=== PATIENT | male | born 1975 | race Caucasian/White ===

== ENCOUNTER 2016-12-06 15:58 | Observation (INO) | payer OTHER ==
[2016-12-06] MEDS ORDERED: NITROGLYCERIN SL TABS 0.4 MG TAB SUBLINGUAL STA (16:42)
--- NOTE | 2016-12-06 16:51 | ED ---
General Adult HPI - General Chief complaint: Chest Pain Stated complaint: chest pain-sent by [employer] Time Seen by Provider: 12/06/16 16:21 Source: patient, family, RN notes reviewed Mode of arrival: ambulatory Limitations: no limitations - History of Present Illness Initial comments: Chief complaint and history of present illness this is a 40-year-old male here with his . Patient reports she's been having on-again off-again chest pain for 2 weeks. It does increase with exertion. He states that it feels like heavy pressure on his chest but is reproducible with deep breathing coughing and palpation over the left anterior chest wall. He denies any injuries. No associated radiation or no sweats nausea or vomiting. He was sent from the clinic here. - Related Data Home Medications Medication Instructions Recorded Confirmed Amlodipine Besylate/Valsartan 1 tab PO HS 12/06/16 12/06/16 [Exforge 5-320 mg Tablet] Allergies Allergy/AdvReac Type Severity Reaction Status Date / Time morphine AdvReac Chest Pain Verified 12/06/16 16:14 Review of Systems ROS Statement: Those systems with pertinent positive or pertinent negative responses have been documented in the HPI. Review of systems no visual acuity changes no headache no stiff neck she has reproducible anterior chest wall pain mostly on the left side. No associated nausea vomiting or sweats. No GI/ problems or complaints. No peripheral discomfort or problems. No change in bowel habits. All systems reviewed Past medical problems asthma many years ago. And hypertension. He is on Exforge combination of amlodipine and valsartan. Patient has had peripheral edema lately. We will discuss stopping the Exforge because of the amlodipine causing peripheral edema. Surgeries include bilateral tendon repairs of both elbows, left knee tib-fib surgery. Appendectomy and Achilles tendon repair. ALLERGIES to morphine which slows his heart. Patient's family history no sudden , no young adults with heart disease no cancers. Patient quit smoking 10 years ago denies alcohol use. ROS Other: All systems not noted in ROS Statement are negative. Past Medical History Past Medical History: Asthma, Hypertension History of Any Multi-Drug Resistant Organisms: None Reported Past Surgical History: Appendectomy, Orthopedic Surgery Past Psychological History: No Psychological Hx Reported Smoking Status: Former smoker Past Alcohol Use History: None Reported Past Drug Use History: None Reported General Exam - General Exam Comments Initial Comments: General: The patient is awake and alert, here because of chest pain ongoing for over 2 weeks, increased with exertion. Also reproducible by palpation of anterior chest wall as well as deep breathing and coughing. Vital signs shows temperature 90.1 pulse 81 respiratory rate 18 pulse ox 98% room air blood pressure 153/108. Repeated at 150/92. Eye: Pupils are equal, round and reactive to light, extra-ocular movements are intact ; there is normal conjunctiva bilaterally. No signs of icterus. Ears, nose, mouth and throat: There are moist mucous membranes and no oral lesions. Neck: The neck is supple, there is no tenderness . Cardiovascular: There is a regular rate and rhythm. No murmur, rub or gallop is appreciated. Respiratory: Lungs are clear to auscultation, respirations are non-labored, breath sounds are equal. No wheezes, stridor, rales, or rhonchi. Anterior chest wall discomfort can be reproduced by taking a deep breath coughing and pushing on his own anterior chest wall. He can decrease discomfort by putting pressure over the same area well in deep breaths or coughing. Gastrointestinal: Soft, non-distended, non-tender abdomen without masses or organomegaly noted. There is no rebound or guarding present. No CVA tenderness. Bowel sounds are unremarkable. No trouble bowel movements. Occasionally has slow difficult to start urination. Back: Mild low back pain. Musculoskeletal: Normal ROM, no tenderness, There is no pedal edema. There is no calf tenderness or swelling. Sensation intact. Pulses equal bilaterally 2+. Neurological: No neuro deficits Skin: Skin is warm and dry and no rashes or lesions are noted. Limitations: no limitations Course Vital Signs 12/06/16 12/06/16 12/06/16 16:00 16:21 17:00 Temperature 98.1 F 98.2 F Pulse Rate 81 71 71 Respiratory 18 17 16 Rate Blood Pressure 153/108 143/91 156/90 O2 Sat by Pulse 98 98 98 Oximetry EKG Findings - EKG Comments: EKG Findings:: EKG was done and reviewed at 1613 showing normal sinus rhythm no acute ST elevation no ectopy no ischemic changes. Rate 74 OH interval is 166 QRS 94 QT [address] Ty Medical Decision Making - Medical Decision Making Medical decision making the patient's white count 7.7 hemoglobin 13 hematocrit 38. INR 1.1, d-dimer normal at 0.24 and a normal BNP of 56. Troponin less than 0.012, amylase lipase normal limits. CK mildly elevated at 244. Potassium is 3.3 with a BUN 14 creatinine 1.2 with a GFR greater than 60. The patient was given sublingual nitro which she reports was slightly better but still of discomfort. ET breathe better now and less discomfort. Chest x-ray was done AP and lateral views radiologist's impression is there is no focal airspace opacity, pleural effusion, or pneumothorax seen. Cardiac silhouette size normal limits. The osseous structures are intact. Impression; no acute cardiopulmonary process as read by Dr. lyons We discussed the labs and x-ray. The case be discussed with the attending patient will be admitted for observation for unstable angina - Lab Data Result diagrams: 12/06/16 16:45 12/06/16 16:45 Lab Results 12/06/16 12/06/16 12/06/16 Range/Units 16:45 16:45 16:45 WBC 7.7 (3.8-10.6) k/uL RBC 4.85 (4.30-5.90) m/uL Hgb 13.6 (13.0-17.5) gm/dL Hct 38.0 L (39.0-53.0) % MCV 78.3 L (80.0-100.0) fL MCH 28.1 (25.0-35.0) pg MCHC 35.9 (31.0-37.0) g/dL RDW 13.8 (11.5-15.5) % Plt Count 217 (150-450) k/uL Neutrophils % 65 % Lymphocytes % 23 % Monocytes % 8 % Eosinophils % 2 % Basophils % 1 % Neutrophils # 5.0 (1.3-7.7) k/uL Lymphocytes # 1.7 (1.0-4.8) k/uL Monocytes # 0.6 (0-1.0) k/uL Eosinophils # 0.2 (0-0.7) k/uL Basophils # 0.1 (0-0.2) k/uL PT (9.0-12.0) sec INR (<1.2) APTT (22.0-30.0) sec D-Dimer (<0.60) mg/L FEU Sodium 143 (137-145) mmol/L Potassium 3.3 L (3.5-5.1) mmol/L Chloride 107 (98-107) mmol/L Carbon Dioxide 27 (22-30) mmol/L Anion Gap 9 mmol/L BUN 14 (9-20) mg/dL Creatinine 1.20 (0.66-1.25) mg/dL Est GFR (MDRD) Af Amer >60 (>60 ml/min/1.73 sqM) Est GFR (MDRD) Non-Af >60 (>60 ml/min/1.73 sqM) Glucose 81 (74-99) mg/dL Calcium 9.1 (8.4-10.2) mg/dL Magnesium 2.3 (1.6-2.3) mg/dL Total Bilirubin 0.9 (0.2-1.3) mg/dL AST 40 (17-59) U/L ALT 54 (21-72) U/L Alkaline Phosphatase 58 (38-126) U/L Total Creatine Kinase 244 H (55-170) U/L CK-MB (CK-2) 1.9 (0.0-2.4) ng/mL CK-MB (CK-2) Rel Index 0.8 Troponin I <0.012 (0.000-0.034) ng/mL NT-Pro-B Natriuret Pep pg/mL Total Protein 6.7 (6.3-8.2) g/dL Albumin 4.0 (3.5-5.0) g/dL Amylase 61 (30-110) U/L Lipase 92 (23-300) U/L 12/06/16 12/06/16 Range/Units 16:45 16:45 WBC (3.8-10.6) k/uL RBC (4.30-5.90) m/uL Hgb (13.0-17.5) gm/dL Hct (39.0-53.0) % MCV (80.0-100.0) fL MCH (25.0-35.0) pg MCHC (31.0-37.0) g/dL RDW (11.5-15.5) % Plt Count (150-450) k/uL Neutrophils % % Lymphocytes % % Monocytes % % Eosinophils % % Basophils % % Neutrophils # (1.3-7.7) k/uL Lymphocytes # (1.0-4.8) k/uL Monocytes # (0-1.0) k/uL Eosinophils # (0-0.7) k/uL Basophils # (0-0.2) k/uL PT 10.6 (9.0-12.0) sec INR 1.1 (<1.2) APTT 23.6 (22.0-30.0) sec D-Dimer 0.24 (<0.60) mg/L FEU Sodium (137-145) mmol/L Potassium (3.5-5.1) mmol/L Chloride (98-107) mmol/L Carbon Dioxide (22-30) mmol/L Anion Gap mmol/L BUN (9-20) mg/dL Creatinine (0.66-1.25) mg/dL Est GFR (MDRD) Af Amer (>60 ml/min/1.73 sqM) Est GFR (MDRD) Non-Af (>60 ml/min/1.73 sqM) Glucose (74-99) mg/dL Calcium (8.4-10.2) mg/dL Magnesium (1.6-2.3) mg/dL Total Bilirubin (0.2-1.3) mg/dL AST (17-59) U/L ALT (21-72) U/L Alkaline Phosphatase (38-126) U/L Total Creatine Kinase (55-170) U/L CK-MB (CK-2) (0.0-2.4) ng/mL CK-MB (CK-2) Rel Index Troponin I (0.000-0.034) ng/mL NT-Pro-B Natriuret Pep 56 pg/mL Total Protein (6.3-8.2) g/dL Albumin (3.5-5.0) g/dL Amylase (30-110) U/L Lipase (23-300) U/L Disposition Clinical Impression: Chest pain Disposition: ADMITTED IP TO THIS HOSP Condition: Fair Referrals: Roger Alcaraz MD [Primary Care Provider] - 1-2 days
[2016-12-06 16:57] LABS: Basophils # (A) 0.1 k/uL (0-0.2); Basophils % (A) 1 %; CH 28.1; Eosinophils # (A) 0.2 k/uL (0-0.7); Eosinophils % (A) 2 %; HDW 3.17; HGB 13.6 gm/dL (13.0-17.5); Luc # (Auto) 0.16; Luc % (Auto) 2; Lymphocytes # (A) 1.7 k/uL (1.0-4.8); Lymphocytes % (A) 23 %; MCH 28.1 pg (25.0-35.0); MCHC 35.9 g/dL (31.0-37.0); MCV 78.3 fL (80.0-100.0); Mean Platelet Volume 6.8; Monocytes # (A) 0.6 k/uL (0-1.0); Monocytes % (A) 8 %; Neutrophils % (A) 65 %; RBC 4.85 m/uL (4.30-5.90); RDW 13.8 % (11.5-15.5); WBC 7.7 k/uL (3.8-10.6); WBC (Perox) 7.63
[2016-12-06 17:07] LABS: ALT 54 U/L (21-72); AST 40 U/L (17-59); Alkaline Phosphatase 58 U/L (38-126); Amylase 61 U/L (30-110); Anion Gap 9 mmol/L; Blood Urea Nitrogen 14 mg/dL (9-20); Calcium 9.1 mg/dL (8.4-10.2); Carbon Dioxide 27 mmol/L (22-30); Chloride 107 mmol/L (98-107); Glucose 81 mg/dL (74-99); Magnesium 2.3 mg/dL (1.6-2.3); Non-African American GFR(MDRD) >60 (>60 ml/min/1.73 sqM); Potassium 3.3 mmol/L (3.5-5.1); Sodium 143 mmol/L (137-145); Total Bilirubin 0.9 mg/dL (0.2-1.3); Total Protein 6.7 g/dL (6.3-8.2)
[2016-12-06 17:10] LABS: INR 1.1 (<1.2); Partial Thromboplastin Time 23.6 sec (22.0-30.0); Prothrombin Time 10.6 sec (9.0-12.0)
[2016-12-06 17:18] LABS: Creatine Kinase 244 U/L (55-170)
--- NOTE | 2016-12-06 17:30 | XR ---
EXAMINATION TYPE: XR chest 2V DATE OF EXAM: 12/06/2016 COMPARISON: NONE HISTORY: Chest pain and pressure for 2 weeks, history of asthma TECHNIQUE: Frontal and lateral views of the chest are obtained. FINDINGS: There is no focal air space opacity, pleural effusion, or pneumothorax seen. The cardiac silhouette size is within normal limits. The osseous structures are intact. IMPRESSION: No acute cardiopulmonary process.
[2016-12-06 17:31] LABS: Creatine Kinase MB 1.9 ng/mL (0.0-2.4); Troponin I <0.012 ng/mL (0.000-0.034)
[2016-12-06] MEDS ORDERED: NALOXONE 0.4 MG/ML 1 ML VIAL IV PRN (17:45)
[2016-12-06] MEDS ORDERED: POTASSIUM CHLORIDE ER 20 MEQ TAB.ER PO STA (18:03)
[2016-12-06] MEDS: SODIUM CHLORIDE 0.9% 1,000 ML IV SCH (18:05)
[2016-12-06] MEDS ORDERED: POTASSIUM CHLORIDE ER 20 MEQ TAB.ER PO ONE (19:00)
[2016-12-06] MEDS: NITROGLYCERIN OINT 1 INCH/GM PACKET TOPICAL SCH ×2 (19:20→23:41)
[2016-12-06] MEDS: HEPARIN SODIUM,PORCINE 5,000 UNIT/ML 1 ML VIAL SQ SCH ×2 (19:20→23:41)
[2016-12-06 19:27] VITALS: BMI 28.5
[2016-12-06] MEDS: amLODIPine 5 MG TAB PO SCH (20:03)
[2016-12-06] MEDS: VALSARTAN 160 MG TAB PO SCH (20:03)
[2016-12-06] MEDS: IBUPROFEN 400 MG TAB PO PRN (20:03)
[2016-12-06 23:05] LABS: Creatine Kinase 220 U/L (55-170)
[2016-12-06 23:18] LABS: Creatine Kinase MB 1.5 ng/mL (0.0-2.4); Troponin I <0.012 ng/mL (0.000-0.034)
[2016-12-07] MEDS: IBUPROFEN 400 MG TAB PO PRN (04:40)
[2016-12-07] MEDS ORDERED: IPRATROPIUM-ALBUTEROL 3 ML NEB INHALATION PRN (05:14)
[2016-12-07 05:19] LABS: Creatine Kinase 187 U/L (55-170)
[2016-12-07 05:33] LABS: Creatine Kinase MB 1.2 ng/mL (0.0-2.4); Troponin I <0.012 ng/mL (0.000-0.034)
[2016-12-07] MEDS: SODIUM CHLORIDE 0.9% 1,000 ML IV SCH ×2 (07:18→20:07)
[2016-12-07] MEDS: NITROGLYCERIN OINT 1 INCH/GM PACKET TOPICAL SCH (07:19)
[2016-12-07] MEDS: HEPARIN SODIUM,PORCINE 5,000 UNIT/ML 1 ML VIAL SQ SCH ×2 (08:16→16:54)
[2016-12-07] MEDS ORDERED: Potassium Replacement Protocol 1 EACH MISC MISCELLANE PRN (08:52)
[2016-12-07] MEDS ORDERED: PANTOPRAZOLE 40 MG TABLET PO SCH (09:30)
[2016-12-07] MEDS: POTASSIUM CHLORIDE ER 20 MEQ TAB.ER PO SCH ×3 (09:49→12:09)
[2016-12-07] MEDS: INDOMETHACIN 25 MG CAP PO SCH ×2 (10:08→20:20)
[2016-12-07] MEDS: COLCHICINE 0.6 MG TAB PO SCH ×2 (10:09→20:20)
--- NOTE | 2016-12-07 13:14 | CONS ---
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 He has a history of hypertension which is under fair control. He takes Exforge 5/320 for that. He is otherwise in good health, reasonably active person but for the last two weeks he has been experiencing discomfort in the chest wall of a pleuritic nature, when he takes a deep breath it hurts. Chest x-ray, troponins and EKG are unremarkable. However, when I had him lean forward and take a deep breath the discomfort was worse than when he laid back. Possibility of pericarditis cannot be totally excluded although he does not have a rub and there is no ST segment change or DE depression. However, I am going to give a trial with colchicine and Indomethacin along with some Protonix and see how he does. He has no arrhythmia so far. He is resting comfortably but with deep breathing he does have symptoms. PAST MEDICAL HISTORY: Hypertension. No evidence of any prior myocardial infarction or CVA. He is status post appendectomy. Has had some orthopedic surgery in the past. There is also a question of bronchial asthma. MEDICATIONS AT HOME: Exforge 5/320 one tablet daily. SOCIAL HISTORY: He quit smoking 10 years ago. Does not use alcohol. On examination blood pressure is 147/100, pulse rate is about 78 per minute, regular. HEENT: Unremarkable. Fundus was not examined by me. NECK: Supple. There is no JVD. I do not hear a carotid bruit. There is no thyromegaly. HEART: Reveals S1/S2 heard normally. There is no rub, murmur or gallop. LUNGS: Clear. ABDOMEN: Soft, nontender. LOWER EXTREMITIES: Normal pulses. No edema. CENTRAL NERVOUS SYSTEM: Normal. EKG revealed sinus mechanism without any evidence of DE depression, ST segment change or any other abnormality. This is a normal EKG. IMPRESSION: 1. Clinical features suggestive of pericarditis. 2. History of hypertension. 3. History of bronchial asthma which is not active problem at this time. RECOMMENDATIONS: I am recommending that we discontinue nitroglycerin. I will start him on Indomethacin, colchicine and Protonix and also metoprolol tartrate 25 mg daily in addition to his Exforge which will be resumed. Based on his clinical course I will make further recommendations. I will do an EKG in the morning as well. Discussed my thoughts in detail with the patient. Thank you very much for the consult. JOE
--- NOTE | 2016-12-07 15:13 | P.HPIM ---
History of Present Illness H&P Date: 12/07/16 Chief Complaint: Chest pain Patient is a 40-year-old male who presented to emergency room with a chief complaint of chest pain. Patient reports she's been having on-again off-again chest pain for 2 weeks. It does increase with exertion. He states that it feels like heavy pressure on his chest but is reproducible with deep breathing coughing and palpation over the left anterior chest wall. He denies any injuries. No associated radiation or no sweats nausea or vomiting. He was sent from the clinic here. Past Medical History Past Medical History: Asthma, Hypertension History of Any Multi-Drug Resistant Organisms: None Reported Past Surgical History: Appendectomy, Orthopedic Surgery Additional Past Surgical History / Comment(s): Tendons in B/L elbows, achillies tendon on the right leg, left leg broken tibia Past Anesthesia/Blood Transfusion Reactions: No Reported Reaction Past Psychological History: No Psychological Hx Reported Smoking Status: Former smoker Past Alcohol Use History: None Reported Past Drug Use History: None Reported - Past Family History Mother Family Medical History: No Reported History Father Family Medical History: Hypertension Medications and Allergies Home Medications Medication Instructions Recorded Confirmed Type Amlodipine Besylate/Valsartan 1 tab PO HS 12/06/16 12/06/16 History [Exforge 5-320 mg Tablet] Allergies Allergy/AdvReac Type Severity Reaction Status Date / Time morphine AdvReac Chest Pain Verified 12/06/16 19:22 Physical Exam Vitals: Vital Signs Temp Pulse Pulse Resp BP BP Pulse Ox 12/07/16 11:38 97.8 F 83 18 165/111 96 12/07/16 07:29 98.3 F 78 18 147/101 98 12/07/16 05:30 72 12/07/16 05:22 72 12/07/16 04:00 98.1 F 64 18 132/78 97 12/06/16 23:45 18 12/06/16 23:24 79 18 140/80 98 12/06/16 20:00 18 12/06/16 19:13 98.3 F 59 L 18 146/94 97 12/06/16 18:08 97.9 F 68 18 137/98 99 12/06/16 17:00 71 16 156/90 98 12/06/16 16:21 98.2 F 71 17 143/91 98 12/06/16 16:00 98.1 F 81 18 153/108 98 Intake and Output 12/07/16 12/07/16 12/07/16 06:59 14:59 22:59 Other: Voiding Method Toilet # Voids 1 In general patient is alert and oriented 3 in no apparent distress HEENT head normocephalic and atraumatic Neck is supple no JVD no goiter no lymphadenopathy Chest exam reveals a few scattered crackles no wheezing Cardiac exam reveals regular heart sounds S1 and S2 no gallops no murmurs Abdomen is soft, nontender no organomegaly with normal bowel sounds Extremity exam reveals no edema no cyanosis or clubbing Results CBC & Chem 7: 12/06/16 16:45 12/07/16 08:08 Labs: Abnormal Lab Results - Last 24 Hours (Table) 12/06/16 12/06/16 12/06/16 Range/Units 16:45 16:45 16:45 Hct 38.0 L (39.0-53.0) % MCV 78.3 L (80.0-100.0) fL Potassium 3.3 L (3.5-5.1) mmol/L Total Creatine Kinase 244 H (55-170) U/L 12/06/16 12/07/16 12/07/16 Range/Units 22:33 04:45 08:08 Hct (39.0-53.0) % MCV (80.0-100.0) fL Potassium 3.2 L (3.5-5.1) mmol/L Total Creatine Kinase 220 H 187 H (55-170) U/L Thrombosis Risk Factor Assmnt - Choose All That Apply Each Factor Represents 1 point: Age 41-60 years Thrombosis Risk Factor Assessment Total Risk Factor Score: 1 Thrombosis Risk Factor Assessment Level: Low Risk Assessment and Plan Plan: #1 episodes of chest pain on and off for the last 2 weeks. EKG is normal cardiac enzymes are normal Pain increased with deep inspiration and was bending forward. Case discussed was cardiology possibility of acute pericarditis cannot be ruled out. Patient was started on oral colchicin and Indocin Echocardiogram was ordered monitor till tomorrow #2 hypertension with elevated blood pressure on presentation will monitor blood pressure and adjust medication as needed currently he is maintained on Norvasc 5 mg by mouth daily Diovan 320 mg once daily and metoprolol 25 mg once daily
[2016-12-07] MEDS: amLODIPine 5 MG TAB PO SCH (20:20)
[2016-12-07] MEDS: VALSARTAN 160 MG TAB PO SCH (20:20)
[2016-12-08] MEDS: HEPARIN SODIUM,PORCINE 5,000 UNIT/ML 1 ML VIAL SQ SCH ×2 (00:25→15:13)
[2016-12-08] MEDS ORDERED: PANTOPRAZOLE 40 MG TABLET PO SCH (06:30)
[2016-12-08 07:40] VITALS: RESP 16
[2016-12-08] MEDS ORDERED: METOPROLOL TARTRATE 25 MG TAB PO SCH (09:00)
[2016-12-08] MEDS ORDERED: HEPARIN SODIUM,PORCINE 5,000 UNIT/ML 1 ML VIAL SQ SCH (09:15)
[2016-12-08] MEDS: INDOMETHACIN 25 MG CAP PO SCH (09:33)
[2016-12-08] MEDS: COLCHICINE 0.6 MG TAB PO SCH (09:33)
[2016-12-08] MEDS: SODIUM CHLORIDE 0.9% 1,000 ML IV SCH (09:37)
--- NOTE | 2016-12-08 10:47 | ECHOF ---
Referral Reason:Pericarditis,HTN MEASUREMENTS -------- HEIGHT: 180.3 cm WEIGHT: 90.3 kg BP: 132/90 IVSd: 1.3 cm (0.6 - 1.1) LVIDd: 3.5 cm (3.9 - 5.3) LVPWd: 1.1 cm (0.6 - 1.1) IVSs: 1.8 cm LVIDs: 1.8 cm LVPWs: 1.6 cm Ao Diam: 3.6 cm (2.0 - 3.7) AV Cusp: 2.4 cm (1.5 - 2.6) LA Diam: 3.4 cm (2.7 - 3.8) MV EXCURSION: 19.176 mm (> 18.000) MV EF SLOPE: 80 mm/s (70 - 150) EPSS: 0.5 cm MV E Wilmar: 0.81 m/s MV DecT: 202 ms MV A Wilmar: 0.78 m/s MV E/A Ratio: 1.03 RAP: 5.00 mmHg RVSP: 12.80 mmHg FINDINGS -------- Sinus rhythm. This was a technically good study. The left ventricular size is normal. There is mild concentric left ventricular hypertrophy. Overall left ventricular systolic function is normal with, an EF between 55 - 60 %. The right ventricle is normal in size and function. The left atrium is normal in size. The right atrium is normal in size. The aortic valve is trileaflet, and appears structurally normal. No aortic stenosis or regurgitation. The mitral valve is normal. There is trace mitral regurgitation. Trace tricuspid regurgitation present. The right ventricular systolic pressure, as measured by Doppler, is 12.80mmHg. There is no pulmonic regurgitation present. The aortic root size is normal. There is no pericardial effusion. CONCLUSIONS -------- 1. Sinus rhythm. 2. The aortic root size is normal. 3. There is no pericardial effusion. 4. This was a technically good study. 5. There is mild concentric left ventricular hypertrophy. 6. Overall left ventricular systolic function is normal with, an EF between 55 - 60 %. 7. The left atrium is normal in size. 8. The aortic valve is trileaflet, and appears structurally normal. No aortic stenosis or regurgitation. 9. There is trace mitral regurgitation. 10. Trace tricuspid regurgitation present. 11. There is no pulmonic regurgitation present. HOME SERVICE ADVISOR: Eli Gant RDCS
--- NOTE | 2016-12-08 11:03 | PN ---
Mr. Hillman is a patient who has history of hypertension. Also had pleuritic pain , which I felt was pericarditis. I gave him some colchicine, Indocin. He is feeling better. Symptoms are less. He does have pain, but significant improvement is noted. Vital signs are stable. Physical exam is unremarkable. Blood pressure is 140/90. Pulse rate is 70 per minute. S1 and S2 are normal and no rub. Lungs are clear. Abdomen and lower extremity exam unchanged. Plan is to check the echo, which will be done today, and continue colchicine, Indocin and Protonix for now. I will consider discharging the patient on this medicine and re-evaluate in about a week and when the symptoms are resolved, will consider a stress test at that time. We will make a decision after echo is performed. JOE
[2016-12-08 11:38] VITALS: PULSE 67; TEMP 98.4
[2016-12-08 12:39] VITALS: BP 151/114
--- NOTE | 2016-12-08 12:54 | P.DS ---
Providers Date of admission: 12/06/16 17:46 Expected date of discharge: 12/08/16 Attending physician: Roger Alcaraz Consults: 12/07/16 07:16 Consult Physician Routine Consulting Provider: Iva Sow Consult Reason/Comments: chest pain Do you want consulting provider notified?: Yes Primary care physician: Roger Alcaraz [facility] Course: Discharge diagnosis #1 episodes of chest pain on and off for the last 2 weeks. Likely secondary to a possible acute pericarditis. EKG is normal cardiac enzymes are normal. Troponins negative 3 sets Pain increased with deep inspiration and was bending forward. Case discussed was cardiology possibility of acute pericarditis cannot be ruled out. Patient was started on oral colchicin and Indocin. He reported some improvement in his chest pain to cardiology. Echo showed an EF of 55-60% with trace mitral regurgitation and tricuspid regurgitation. No pericardial effusion. #2 hypertension with elevated blood pressure on presentation will monitor blood pressure and adjust medication as needed currently he is maintained on Norvasc 5 mg by mouth daily Diovan 320 mg once daily metoprolol 25 mg daily added by cardiology. Blood pressure discharge is 155/114. We will monitor on current regimen of blood pressure medications. It has patient follow-up with Dr. Alcaraz in 1 week. Hospital course Patient is a 40-year-old male who presented to emergency room with a chief complaint of chest pain. Patient reports she's been having on-again off-again chest pain for 2 weeks. It does increase with exertion. He states that it feels like heavy pressure on his chest but is reproducible with deep breathing coughing and palpation over the left anterior chest wall. He denies any injuries. No associated radiation or no sweats nausea or vomiting. He was sent from the clinic here. EKG had shown normal sinus rhythm. Cardiac enzymes are normal. Patient evaluated by cardiology. Initially felt that this was related to pericarditis. He was started on Indocin and colchicine. He reported to cardiology some improvement. I'm still reporting some pain to me this morning. However patient is eager for discharge. Echo was completed which was essentially normal. In cardiology has cleared him for discharge. He'll follow-up with him in the office. Likely his symptoms may have been related to a possible pericarditis. He'll continue on the colchicine and Indocin as prescribed per cardiology. Also metoprolol was added for better blood pressure control. We'll patient follow-up in the office to reevaluate his blood pressure. Patient follow-up with Dr. Alcaraz in 1 week and cardiology on 12/26/2016. Please refer to chart for any further details. Patient Condition at Discharge: Stable Plan - Discharge Summary New Discharge Prescriptions: New Colchicine [Colcrys] 0.6 mg PO BID #28 tablet Indomethacin [Indocin] 25 mg PO BID #12 capsule Pantoprazole Sodium [Protonix] 40 mg PO DAILY #90 tablet. Metoprolol Tartrate [Lopressor] 25 mg PO DAILY #30 tab Continue Amlodipine Besylate/Valsartan [Exforge 5-320 mg Tablet] 1 tab PO HS Discharge Medication List Amlodipine Besylate/Valsartan [Exforge 5-320 mg Tablet] 1 tab PO HS 12/06/16 [ History] Colchicine [Colcrys] 0.6 mg PO BID #28 tablet 12/08/16 [Rx] Indomethacin [Indocin] 25 mg PO BID #12 capsule 12/08/16 [Rx] Metoprolol Tartrate [Lopressor] 25 mg PO DAILY #30 tab 12/08/16 [Rx] Pantoprazole Sodium [Protonix] 40 mg PO DAILY #90 tablet. 12/08/16 [Rx] Follow up Appointment(s)/Referral(s): Iva Sow MD [STAFF PHYSICIAN] - 12/26/16 8:15 am (Will have echocardiogram then office visit with Dr. ZUNILDA Sow) Roger Alcaraz MD [Primary Care Provider] - 1 Week Activity/Diet/Wound Care/Special Instructions: Diet: cardiac Activity: as tolerated Discharge Disposition: HOME SELF-CARE
== END 2016-12-08 14:54 | disposition home or self-care (01) ==
LOC: EC 15:58 → 3OBS 17:46
PROVIDERS: ADMIT Internal Medicine; ATTEND Internal Medicine
DX: R07.9 Chest pain, unspecified (principal); I10 Essential (primary) hypertension; Z79.899 Other long term (current) drug therapy; Z88.5 Allergy status to narcotic agent; Z87.891 Personal history of nicotine dependence
CPT/HCPCS: 96360; 96361 ×2; 96372 ×3; 99285; 36415; 94640; 93005; 93306; 85379; 83880; 80053; 82150; 82550 ×2; 82553 ×2; 83690; 83735; 84132 ×2; 84484 ×2; 85025; 85610; 85730; 71020; G0378 ×3; J1644 ×3

== ENCOUNTER → 2017-02-04 | Outpatient (CLI) | payer OTHER ==
[2017-02-04 10:46] LABS: Anion Gap 12 mmol/L; Blood Urea Nitrogen 24 mg/dL (9-20); Calcium 10.2 mg/dL (8.4-10.2); Carbon Dioxide 30 mmol/L (22-30); Chloride 99 mmol/L (98-107); Glucose 93 mg/dL (74-99); Non-African American GFR(MDRD) 56 (>60 ml/min/1.73 sqM); Potassium 3.4 mmol/L (3.5-5.1); Sodium 141 mmol/L (137-145)
== END | disposition home or self-care (01) ==
LOC: LABWHC1 09:59
PROVIDERS: ATTEND Internal Medicine Interventional Cardiology
DX: I10 Essential (primary) hypertension (principal)
CPT/HCPCS: 36415; 80048

== ENCOUNTER → 2017-05-11 | Outpatient (CLI) | payer OTHER ==
[2017-05-11 14:23] LABS: Anion Gap 9 mmol/L; Blood Urea Nitrogen 22 mg/dL (9-20); Calcium 9.5 mg/dL (8.4-10.2); Carbon Dioxide 34 mmol/L (22-30); Chloride 96 mmol/L (98-107); Glucose 95 mg/dL (74-99); Non-African American GFR(MDRD) 51 (>60 ml/min/1.73 sqM); Potassium 3.2 mmol/L (3.5-5.1); Sodium 139 mmol/L (137-145)
== END | disposition home or self-care (01) ==
LOC: LABWHC1 13:16
PROVIDERS: ATTEND Internal Medicine Interventional Cardiology
DX: E03.9 Hypothyroidism, unspecified (principal); I10 Essential (primary) hypertension
CPT/HCPCS: 36415; 80048; 84439; 84443

== ENCOUNTER 2017-08-05 10:32 | Emergency (ER) | payer OTHER ==
[2017-08-05 10:41] VITALS: TEMP 98.6
[2017-08-05] MEDS ORDERED: SODIUM CHLORIDE 0.9% 500 ML IV STA (11:00)
[2017-08-05] MEDS ORDERED: SODIUM CHLORIDE 0.9% 1,000 ML IV STA (11:00)
--- NOTE | 2017-08-05 11:14 | ED ---
General Adult HPI - General Chief complaint: Syncope Stated complaint: syncope Time Seen by Provider: 08/05/17 10:34 Source: patient, EMS, RN notes reviewed, old records reviewed Mode of arrival: EMS Limitations: no limitations - History of Present Illness Initial comments: This is a 41-year-old male the ER for evaluation. This patient has a for evaluation regarding syncope. Patient had syncopal event at work today. Patient does take blood pressure medication with history of high blood pressure. Patient states he felt fine otherwise is been a little no other lately with nausea and decreased appetite, no significant diarrhea no abdominal pain no chest patient was breath headache. No prior episodes of syncope. - Related Data Home Medications Medication Instructions Recorded Confirmed Amlodipine Besylate/Valsartan 1 tab PO DAILY 08/05/17 08/05/17 [Exforge 10-320 mg Tablet] Losartan Potassium [Cozaar] 100 mg PO DAILY 08/05/17 08/05/17 Metoprolol Tartrate [Lopressor] 25 mg PO BID 08/05/17 08/05/17 amLODIPine [Norvasc] 5 mg PO BID 08/05/17 08/05/17 Allergies Allergy/AdvReac Type Severity Reaction Status Date / Time morphine AdvReac Chest Pain Verified 08/05/17 11:24 Review of Systems ROS Statement: Those systems with pertinent positive or pertinent negative responses have been documented in the HPI. ROS Other: All systems not noted in ROS Statement are negative. Past Medical History Past Medical History: Asthma, Hypertension History of Any Multi-Drug Resistant Organisms: None Reported Past Surgical History: Appendectomy, Orthopedic Surgery Additional Past Surgical History / Comment(s): Tendons in B/L elbows, achillies tendon on the right leg, left leg broken tibia Past Anesthesia/Blood Transfusion Reactions: No Reported Reaction Past Psychological History: No Psychological Hx Reported Smoking Status: Former smoker Past Alcohol Use History: None Reported Past Drug Use History: None Reported - Past Family History Mother Family Medical History: No Reported History Father Family Medical History: Hypertension General Exam Limitations: no limitations General appearance: alert, in no apparent distress Head exam: Present: atraumatic, normocephalic, normal inspection Eye exam: Present: normal appearance, PERRL, EOMI. Absent: scleral icterus, conjunctival injection, periorbital swelling ENT exam: Present: normal exam, mucous membranes moist Neck exam: Present: normal inspection. Absent: tenderness, meningismus, lymphadenopathy Respiratory exam: Present: normal lung sounds bilaterally. Absent: respiratory distress, wheezes, rales, rhonchi, stridor Cardiovascular Exam: Present: regular rate, normal rhythm, normal heart sounds. Absent: systolic murmur, diastolic murmur, rubs, gallop, clicks GI/Abdominal exam: Present: soft, normal bowel sounds. Absent: distended, tenderness, guarding, rebound, rigid Extremities exam: Present: normal inspection, full ROM, normal capillary refill. Absent: tenderness, pedal edema, joint swelling, calf tenderness Back exam: Present: normal inspection Neurological exam: Present: alert, oriented X3, CN II-XII intact Psychiatric exam: Present: normal affect, normal mood Skin exam: Present: warm, dry, intact, normal color. 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 No complaints of chest pain shortness breath or abdominal pain. No headache. Patient is mildly dehydrated, improves with fluid replacement. Patient can be discharged home - Lab Data Result diagrams: 08/05/17 10:48 08/05/17 10:48 Lab Results 08/05/17 08/05/17 08/05/17 Range/Units 10:48 10:48 10:48 WBC 4.2 (3.8-10.6) k/uL RBC 4.94 (4.30-5.90) m/uL Hgb 13.7 (13.0-17.5) gm/dL Hct 38.9 L (39.0-53.0) % MCV 78.8 L (80.0-100.0) fL MCH 27.7 (25.0-35.0) pg MCHC 35.1 (31.0-37.0) g/dL RDW 13.8 (11.5-15.5) % Plt Count 197 (150-450) k/uL Neutrophils % 61 % Lymphocytes % 25 % Monocytes % 8 % Eosinophils % 3 % Basophils % 1 % Neutrophils # 2.6 (1.3-7.7) k/uL Lymphocytes # 1.0 (1.0-4.8) k/uL Monocytes # 0.3 (0-1.0) k/uL Eosinophils # 0.1 (0-0.7) k/uL Basophils # 0.0 (0-0.2) k/uL Poikilocytosis Slight PT (9.0-12.0) sec INR (<1.2) APTT (22.0-30.0) sec D-Dimer (<0.60) mg/L FEU Sodium 140 (137-145) mmol/L Potassium 3.2 L (3.5-5.1) mmol/L Chloride 102 (98-107) mmol/L Carbon Dioxide 27 (22-30) mmol/L Anion Gap 11 mmol/L BUN 21 H (9-20) mg/dL Creatinine 1.99 H (0.66-1.25) mg/dL Est GFR (CKD-EPI)AfAm 46 (>60 ml/min/1.73 sqM) Est GFR (CKD-EPI)NonAf 40 (>60 ml/min/1.73 sqM) Glucose 100 H (74-99) mg/dL Calcium 8.5 (8.4-10.2) mg/dL Magnesium 2.5 H (1.6-2.3) mg/dL Total Bilirubin 0.6 (0.2-1.3) mg/dL AST 44 (17-59) U/L ALT 38 (21-72) U/L Alkaline Phosphatase 48 (38-126) U/L Total Creatine Kinase 517 H (55-170) U/L CK-MB (CK-2) 1.3 (0.0-2.4) ng/mL CK-MB (CK-2) Rel Index 0.3 Troponin I <0.012 (0.000-0.034) ng/mL Total Protein 6.5 (6.3-8.2) g/dL Albumin 3.8 (3.5-5.0) g/dL 08/05/17 Range/Units 10:48 WBC (3.8-10.6) k/uL RBC (4.30-5.90) m/uL Hgb (13.0-17.5) gm/dL Hct (39.0-53.0) % MCV (80.0-100.0) fL MCH (25.0-35.0) pg MCHC (31.0-37.0) g/dL RDW (11.5-15.5) % Plt Count (150-450) k/uL Neutrophils % % Lymphocytes % % Monocytes % % Eosinophils % % Basophils % % Neutrophils # (1.3-7.7) k/uL Lymphocytes # (1.0-4.8) k/uL Monocytes # (0-1.0) k/uL Eosinophils # (0-0.7) k/uL Basophils # (0-0.2) k/uL Poikilocytosis PT 10.0 (9.0-12.0) sec INR 1.0 (<1.2) APTT 22.3 (22.0-30.0) sec D-Dimer 0.43 (<0.60) mg/L FEU Sodium (137-145) mmol/L Potassium (3.5-5.1) mmol/L Chloride (98-107) mmol/L Carbon Dioxide (22-30) mmol/L Anion Gap mmol/L BUN (9-20) mg/dL Creatinine (0.66-1.25) mg/dL Est GFR (CKD-EPI)AfAm (>60 ml/min/1.73 sqM) Est GFR (CKD-EPI)NonAf (>60 ml/min/1.73 sqM) Glucose (74-99) mg/dL Calcium (8.4-10.2) mg/dL Magnesium (1.6-2.3) mg/dL Total Bilirubin (0.2-1.3) mg/dL AST (17-59) U/L ALT (21-72) U/L Alkaline Phosphatase (38-126) U/L Total Creatine Kinase (55-170) U/L CK-MB (CK-2) (0.0-2.4) ng/mL CK-MB (CK-2) Rel Index Troponin I (0.000-0.034) ng/mL Total Protein (6.3-8.2) g/dL Albumin (3.5-5.0) g/dL - Radiology Data Radiology results: report reviewed (Chest x-rays negative for acute disease), image reviewed Disposition Clinical Impression: Vasovagal syncope, Dehydration Disposition: HOME SELF-CARE Condition: Good Instructions: Syncope (ED) Referrals: Roger Alcaraz MD [Primary Care Provider] - 1-2 days
[2017-08-05 11:19] LABS: Basophils % (A) 1 %; Eosinophils # (A) 0.1 k/uL (0-0.7); Eosinophils % (A) 3 %; HCT 38.9 % (39.0-53.0); HGB 13.7 gm/dL (13.0-17.5); Lymphocytes % (A) 25 %; MCH 27.7 pg (25.0-35.0); MCHC 35.1 g/dL (31.0-37.0); MCV 78.8 fL (80.0-100.0); Mean Platelet Volume 6.7; Monocytes # (A) 0.3 k/uL (0-1.0); Monocytes % (A) 8 %; Neutrophils # (A) 2.6 k/uL (1.3-7.7); Neutrophils % (A) 61 %; Platelet Count 197 k/uL (150-450); Poikilocytosis Slight; RBC 4.94 m/uL (4.30-5.90); RDW 13.8 % (11.5-15.5); WBC 4.2 k/uL (3.8-10.6)
[2017-08-05 11:29] LABS: D-Dimer 0.43 mg/L FEU (<0.60)
[2017-08-05 11:32] LABS: Albumin 3.8 g/dL (3.5-5.0); Calcium 8.5 mg/dL (8.4-10.2); Magnesium 2.5 mg/dL (1.6-2.3); Potassium 3.2 mmol/L (3.5-5.1); Total Bilirubin 0.6 mg/dL (0.2-1.3); Total Protein 6.5 g/dL (6.3-8.2)
[2017-08-05 11:38] LABS: Partial Thromboplastin Time 22.3 sec (22.0-30.0)
--- NOTE | 2017-08-05 11:42 | XR ---
EXAMINATION TYPE: XR chest 2V DATE OF EXAM: 08/05/2017 COMPARISON: 12/06/2016 HISTORY: 41-year-old male with pain TECHNIQUE: PA and lateral views FINDINGS: Heart normal size. Aorta within normal limits. Mild diffuse interstitial prominence is unchanged from prior. No consolidation or pleural effusion. IMPRESSION: Chronic changes, possible chronic bronchitis/asthma. No acute change identified.
[2017-08-05 11:47] LABS: Creatine Kinase 517 U/L (55-170)
[2017-08-05] MEDS ORDERED: POTASSIUM CHLORIDE ER 20 MEQ TAB.ER PO STA (11:48)
[2017-08-05 12:00] LABS: Creatine Kinase MB 1.3 ng/mL (0.0-2.4); Troponin I <0.012 ng/mL (0.000-0.034)
[2017-08-05 12:10] VITALS: PULSE 64; RESP 18
[2017-08-05 13:10] VITALS: BP 90/57
== END 2017-08-05 13:12 | disposition home or self-care (01) ==
LOC: EC 10:32
DX: E86.0 Dehydration (principal); R55 Syncope and collapse; I10 Essential (primary) hypertension; Z87.891 Personal history of nicotine dependence; Z79.899 Other long term (current) drug therapy; Z88.5 Allergy status to narcotic agent
CPT/HCPCS: 36415; 71046; 80053; 82550; 82553; 83735; 84484; 85025; 85379; 85610; 85730; 93005; 96360; 99285

== ENCOUNTER → 2017-11-20 | Outpatient (CLI) | payer OTHER ==
--- NOTE | 2017-11-20 18:18 | US ---
EXAMINATION TYPE: US kidneys/renal and bladder DATE OF EXAM: 11/20/2017 COMPARISON: NONE CLINICAL HISTORY: Elevated creatinine level R79.89. abnormal labs. No pain. EXAM MEASUREMENTS: Right Kidney: 10.3 x 5.3 x 5.0 cm Left Kidney: 9.8 x 4.5 x 5.2 cm Right Kidney: wnl Left Kidney: wnl Bladder: wnl, distended Bilateral Jets seen There is no evidence for hydronephrosis at this point in time. No nephrolithiasis is seen. No kesha s are identified. The urinary bladder is anechoic. Bilateral ureteral jets are seen. IMPRESSION: Negative retroperitoneal sonogram exam. No evidence of renal mass or obstruction.
== END | disposition home or self-care (01) ==
LOC: RADUSWWP 16:14
PROVIDERS: ATTEND Internal Medicine
DX: R79.89 Other specified abnormal findings of blood chemistry (principal)
CPT/HCPCS: 76770

== ENCOUNTER 2019-02-02 08:22 | Emergency (ER) | payer OTHER ==
[2019-02-02 08:34] VITALS: RESP 18
[2019-02-02] MEDS ORDERED: ONDANSETRON 4 MG/2 ML VIAL IVP STA (08:58)
[2019-02-02] MEDS ORDERED: SODIUM CHLORIDE 0.9% 1,000 ML IV STA ×2 (08:58)
[2019-02-02] MEDS ORDERED: HYDROmorphone 1 MG/ML 1 ML SYRINGE IVP STA (08:58)
--- NOTE | 2019-02-02 09:00 | ED ---
Abdominal Pain HPI - General Chief Complaint: Abdominal Pain Stated Complaint: Diverticulitis Time Seen by Provider: 02/02/19 08:36 Source: patient, RN notes reviewed, old records reviewed Mode of arrival: ambulatory Limitations: no limitations - History of Present Illness Initial Comments: This patient's a 43-year-old male who presents emergency Department today with diffuse abdominal pain for the past 2-3 weeks. Worse within the past few days. Patient reports that he has been having frequency in urination and getting up multiple times at night to urinate. Patient states that he was told that he has had increased creatinine is was felt that the kidney doctors in March. Patient reports that he's had frequent diarrhea but denies any vomiting. Patient states he has nauseated. Patient reports no fever. Patient states she's had history of diverticulitis the past and this feels like a similar flareups. - Related Data Home Medications Medication Instructions Recorded Confirmed Metoprolol Tartrate [Lopressor] 25 mg PO BID 08/05/17 02/02/19 Albuterol Nebulized [Ventolin 2.5 mg INHALATION RT-Q4H PRN 02/02/19 02/02/19 Nebulized] HYDROcodone/APAP 7.5-325MG [[place] 1 tab PO BID PRN 02/02/19 02/02/19 7.5-325] Losartan/Hydrochlorothiazide 1 tab PO DAILY 02/02/19 02/02/19 [Losartan-Hctz 100-12.5 mg Tab] amLODIPine [Norvasc] 10 mg PO DAILY 02/02/19 02/02/19 cloNIDine HCL [Catapres] 0.1 mg PO BID 02/02/19 02/02/19 Previous Rx's Medication Instructions Recorded Dicyclomine [Bentyl] 10 mg PO TID #20 capsule 02/02/19 Allergies Allergy/AdvReac Type Severity Reaction Status Date / Time morphine AdvReac Chest Pain Verified 02/02/19 09:02 Review of Systems ROS Statement: Those systems with pertinent positive or pertinent negative responses have been documented in the HPI. ROS Other: All systems not noted in ROS Statement are negative. Past Medical History Past Medical History: Asthma, Hypertension Additional Past Medical History / Comment(s): diverticulitis History of Any Multi-Drug Resistant Organisms: None Reported Past Surgical History: Appendectomy, Orthopedic Surgery Additional Past Surgical History / Comment(s): Tendons in B/L elbows, achillies tendon on the right leg, left leg broken tibia Past Anesthesia/Blood Transfusion Reactions: No Reported Reaction Past Psychological History: No Psychological Hx Reported Smoking Status: Former smoker Past Alcohol Use History: None Reported Past Drug Use History: None Reported - Past Family History Mother Family Medical History: No Reported History Father Family Medical History: Hypertension General Exam - General Exam Comments Initial Comments: 43-year-old male. No significant distress. Limitations: no limitations General appearance: alert Head exam: Present: atraumatic, normocephalic, normal inspection Eye exam: Present: normal appearance, PERRL, EOMI. Absent: scleral icterus, conjunctival injection, periorbital swelling ENT exam: Present: normal exam, mucous membranes moist Neck exam: Present: normal inspection. Absent: tenderness, meningismus, lymphadenopathy Respiratory exam: Present: normal lung sounds bilaterally. Absent: respiratory distress, wheezes, rales, rhonchi, stridor Cardiovascular Exam: Present: regular rate, normal rhythm, normal heart sounds. Absent: systolic murmur, diastolic murmur, rubs, gallop, clicks GI/Abdominal exam: Present: soft, tenderness (Epigastric tenderness.), normal bowel sounds. Absent: distended, guarding, rebound, rigid Extremities exam: Present: normal inspection, full ROM, normal capillary refill. Absent: tenderness, pedal edema, joint swelling, calf tenderness Back exam: Present: normal inspection Course Vital Signs 02/02/19 08:32 Temperature 98.1 F Pulse Rate 76 Respiratory 18 Rate Blood Pressure 108/72 O2 Sat by Pulse 98 Oximetry Medical Decision Making - Medical Decision Making Asians a 43-year-old male presents emergency department today for evaluation with chief complaint of 2 weeks of abdominal pain, also frequency in urination. Patient's labwork was reviewed. Labs are also unremarkable. Normal white blood cell count. Patient's kidney function is actually improved from his last one in July. He states these pills follow-up with a junior systems analyst in a month. Patient states that he has no dysuria at this time. Urinalysis is mild protein. Patient's CT head and pelvis was reviewed and is of enteritis conserved possibly early bowel instruction however patient's vomiting and no clinical suspicion for bowel instruction. He does complain of just diarrhea. Likely ileus or enteritis related. Patient has no bloody stools as well. Patient will be also it is noted approximately. Likely related to patient's urinary frequency. I discussed the Patient follow-up with his primary care doctor regards press megaly and enteritis. No antibiotics at this time she does not have diverticulitis and normal white blood cell count. Discussed return parameters. We'll discharge the Patient with Bentyl. - Lab Data Result diagrams: 02/02/19 08:50 02/02/19 08:50 Lab Results 02/02/19 02/02/19 02/02/19 Range/Units 08:50 08:50 08:50 WBC 8.0 (3.8-10.6) k/uL RBC 5.62 (4.30-5.90) m/uL Hgb 16.1 (13.0-17.5) gm/dL Hct 45.0 (39.0-53.0) % MCV 80.0 (80.0-100.0) fL MCH 28.7 (25.0-35.0) pg MCHC 35.9 (31.0-37.0) g/dL RDW 16.5 H (11.5-15.5) % Plt Count 267 (150-450) k/uL Neutrophils % 68 % Lymphocytes % 21 % Monocytes % 6 % Eosinophils % 2 % Basophils % 1 % Neutrophils # 5.5 (1.3-7.7) k/uL Lymphocytes # 1.7 (1.0-4.8) k/uL Monocytes # 0.5 (0-1.0) k/uL Eosinophils # 0.1 (0-0.7) k/uL Basophils # 0.1 (0-0.2) k/uL Hyperchromasia Slight Anisocytosis Slight Sodium 140 (137-145) mmol/L Potassium 3.4 L (3.5-5.1) mmol/L Chloride 101 (98-107) mmol/L Carbon Dioxide 26 (22-30) mmol/L Anion Gap 13 mmol/L BUN 16 (9-20) mg/dL Creatinine 1.48 H (0.66-1.25) mg/dL Est GFR (CKD-EPI)AfAm 65 (>60 ml/min/1.73 sqM) Est GFR (CKD-EPI)NonAf 57 (>60 ml/min/1.73 sqM) Glucose 116 H (74-99) mg/dL Calcium 10.2 (8.4-10.2) mg/dL Total Bilirubin 1.2 (0.2-1.3) mg/dL AST 33 (17-59) U/L ALT 33 (21-72) U/L Alkaline Phosphatase 47 (38-126) U/L Total Protein 8.0 (6.3-8.2) g/dL Albumin 4.8 (3.5-5.0) g/dL Amylase 94 (30-110) U/L Lipase 155 (23-300) U/L Urine Color Dark Yellow Urine Appearance Clear (Clear) Urine pH 5.5 (5.0-8.0) Ur Specific [place] 1.036 H (1.001-1.035) Urine Protein 1+ H (Negative) Urine Glucose (UA) Trace H (Negative) Urine Ketones Negative (Negative) Urine Blood Negative (Negative) Urine Nitrite Negative (Negative) Urine Bilirubin Negative (Negative) Urine Urobilinogen 2.0 (<2.0) mg/dL Ur Leukocyte Esterase Negative (Negative) Urine RBC 1 (0-5) /hpf Urine WBC 2 (0-5) /hpf Hyaline Casts 2 (0-2) /lpf Urine Mucus Many H (None) /hpf - Radiology Data Radiology results: report reviewed Prominent fluid-filled small bowel loops in the left mid abdomen measuring up to 2.8 cm. Correlating for regional ileus or enteritis. Follow-up imaging symptoms persist or concern for early obstruction as there is a transition point to completely collapsed mid distal small polyps after the segment. Moderate circumferential bladder wall thickening could be secondary to chronic bladder wall hypertrophy or cystitis. Percent a megaly of 5.1 cm wide. Disposition Clinical Impression: Enteritis, Prostate enlargement Disposition: HOME SELF-CARE Condition: Good Instructions (If sedation given, give patient instructions): Enteritis (ED), Enlarged Prostate (BPH) (ED) Additional Instructions: Please use medication as discussed. Please follow up with family doctor if symptoms have not improved over the next two days. Please return to the [facility] gency room if your symptoms increase or worsen or for any other concerns. Patient advised to complete the stool studies have one follow-up with her primary care physician in regards to this. Prescriptions: Dicyclomine [Bentyl] 10 mg PO TID #20 capsule Is patient prescribed a controlled substance at d/c from ED?: No Referrals: Roger Alcaraz MD [Primary Care Provider] - 1-2 days Time of Disposition: 10:55
[2019-02-02 09:17] LABS: Anisocytosis Slight; Basophils # (A) 0.1 k/uL (0-0.2); Basophils % (A) 1 %; Eosinophils # (A) 0.1 k/uL (0-0.7); Eosinophils % (A) 2 %; HGB 16.1 gm/dL (13.0-17.5); Hyperchromasia Slight; Lymphocytes # (A) 1.7 k/uL (1.0-4.8); Lymphocytes % (A) 21 %; MCH 28.7 pg (25.0-35.0); MCHC 35.9 g/dL (31.0-37.0); Mean Platelet Volume 6.3; Monocytes # (A) 0.5 k/uL (0-1.0); Monocytes % (A) 6 %; Neutrophils # (A) 5.5 k/uL (1.3-7.7); Neutrophils % (A) 68 %; Platelet Count 267 k/uL (150-450); RBC 5.62 m/uL (4.30-5.90); RDW 16.5 % (11.5-15.5)
[2019-02-02 09:19] LABS: Appearance,Urine Clear (Clear); Bilirubin,Urine Negative (Negative); Blood,Urine Negative (Negative); Color,Urine Dark Yellow; Glucose,Urine (UA) Trace (Negative); Hyaline Casts,Urine 2 /lpf (0-2); Ketones,Urine Negative (Negative); Leukocyte Esterase,Urine Negative (Negative); Mucus,Urine Many /hpf; Nitrite,Urine Negative (Negative); PH, Urine 5.5 (5.0-8.0); Protein,Urine 1+ (Negative); RBC,Urine 1 /hpf (0-5); Specific Gravity,Urine 1.036 (1.001-1.035); WBC,Urine 2 /hpf (0-5)
[2019-02-02 09:29] LABS: Albumin 4.8 g/dL (3.5-5.0); Calcium 10.2 mg/dL (8.4-10.2); Potassium 3.4 mmol/L (3.5-5.1); Total Bilirubin 1.2 mg/dL (0.2-1.3)
--- NOTE | 2019-02-02 10:07 | CT ---
EXAMINATION TYPE: CT abdomen pelvis w con DATE OF EXAM: 02/02/2019 COMPARISON: NONE HISTORY: 43-year-old male with mid Abdominal pain with nausea TECHNIQUE: Contiguous axial scanning of the abdomen and pelvis following administration of 100 ml Iso vania 300 IV contrast. Delayed images through the kidneys and coronal/sagittal reconstructions perform ed. CT DLP: 1165.9 mGycm Automated exposure control for dose reduction was used. FINDINGS: Heart normal size without pericardial effusion. Lung bases clear without pleural effusion. No focal liver lesion or biliary ductal dilatation. Portal venous system is patent. Gallbladder, adrenal glands, kidneys, spleen, and pancreas appear within normal limits. No dilated small bowel, free fluid, or free air. Some mildly prominent fluid-filled small bowel loops in the left midabdomen measuring 2.8 cm. Semiliquid stool seen within the cecum. Otherwise, no signi ficant stool burden or pericolonic inflammatory change. Appendix not discretely visualized. However, no secondary signs of acute appendicitis. No mesenteric or retroperitoneal lymphadenopathy. Circumferential bladder wall thickening. Prostate gland measures 5.1 cm wide with central calcificati ons. Additional multiple pelvic phleboliths. No abnormal fluid collection pelvis or pelvic lymphadeno terry. Bones: No osseous destructive process. 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 IMPRESSION: 1. PROMINENT FLUID-FILLED SMALL BOWEL LOOPS IN THE LEFT MID ABDOMEN MEASURING UP TO 2.8 CM. CORRELATE FOR REGIONAL ILEUS OR ENTERITIS. 2. FOLLOW-UP IMAGING IF SYMPTOMS PERSIST OR IF CONCERN FOR EARLY OBSTRUCTION THERE IS A TRANSITION TO COMPLETELY COLLAPSED MID AND DISTAL SMALL BOWEL LOOPS AFTER THIS SEGMENT. 3. MODERATE CIRCUMFERENTIAL BLADDER WALL THICKENING COULD BE SECONDARY TO CHRONIC BLADDER WALL HYPERT ROPHY OR CYSTITIS. 4. PROSTATOMEGALY AT 5.1 CM WIDE.
[2019-02-02 11:11] VITALS: BP 117/89; PULSE 57; TEMP 98.9
== END 2019-02-02 11:09 | disposition home or self-care (01) ==
LOC: EC 08:22
DX: K52.9 Noninfective gastroenteritis and colitis, unspecified (principal); N40.0 Benign prostatic hyperplasia without lower urinary tract symptoms; J45.909 Unspecified asthma, uncomplicated; I10 Essential (primary) hypertension; Z87.891 Personal history of nicotine dependence; Z79.899 Other long term (current) drug therapy; Z88.5 Allergy status to narcotic agent
CPT/HCPCS: 36415; 80053; 82150; 83690; 85025; 81001; 74177; 99284; 96374; 96375; 96361 ×2; J2405; J1170; Q9967

== ENCOUNTER 2021-04-06 20:15 | Emergency (ER) | payer OTHER ==
[2021-04-06 20:21] VITALS: RESP 18
[2021-04-06] MEDS ORDERED: ASPIRIN 81 MG PO STA (20:45)
--- NOTE | 2021-04-06 21:32 | ED ---
General Adult HPI - General Chief complaint: Extremity Injury, Upper Stated complaint: L arm numbness Time Seen by Provider: 04/06/21 20:36 Source: patient, RN notes reviewed, old records reviewed Mode of arrival: ambulatory Limitations: no limitations - History of Present Illness Initial comments: Patient is a 45-year-old male with history of hypertension, asthma, presenting to the emergency Department with complaints of left arm pain started about 12:00 today. Patient denies any injuries or trauma. He states he was flying back from [place] today and noticed a weird pain in his left bicep area. He states the pain has been continuous since then. He's had some tingling into his left hand. He denies any chest pain or shortness of breath, no fevers or chills. Again he denies any injuries to his left arm, no recent vaccines so the arm, no redness or swelling. He denies any history of blood clots. Denies any previous surgeries of the left arm. He did have a cardiac stress test about 4 years ago, no acute abnormality is. He has no further complaints. Blood pressure on arrival is 154/100, rest of vitals normal. - Related Data Home Medications Medication Instructions Recorded Confirmed Metoprolol Tartrate [Lopressor] 25 mg PO DAILY 08/05/17 04/06/21 amLODIPine [Norvasc] 10 mg PO DAILY 02/02/19 04/06/21 cloNIDine HCL [Catapres] 0.1 mg PO DAILY 02/02/19 04/06/21 Albuterol Sulfate [Proair Hfa] 2 puff INHALATION RT-QID PRN 04/06/21 04/06/21 Furosemide [Lasix] 20 mg PO DAILY 04/06/21 04/06/21 Hydrochlorothiazide 12.5 mg PO DAILY 04/06/21 04/06/21 [hydroCHLOROthiazide] Losartan Potassium 100 mg PO DAILY 04/06/21 04/06/21 Potassium Chloride ER [K-Dur 10] 10 meq PO DAILY 04/06/21 04/06/21 Tamsulosin HCl [Flomax] 0.4 mg PO DAILY 04/06/21 04/06/21 Allergies Allergy/AdvReac Type Severity Reaction Status Date / Time morphine AdvReac Heart Rate Verified 04/06/21 21:55 Drops Review of Systems ROS Statement: Those systems with pertinent positive or pertinent negative responses have been documented in the HPI. ROS Other: All systems not noted in ROS Statement are negative. Past Medical History Past Medical History: Asthma, Hypertension Additional Past Medical History / Comment(s): diverticulitis History of Any Multi-Drug Resistant Organisms: None Reported Past Surgical History: Appendectomy, Orthopedic Surgery Additional Past Surgical History / Comment(s): Tendons in B/L elbows, achillies tendon on the right leg, left leg broken tibia Past Anesthesia/Blood Transfusion Reactions: No Reported Reaction Past Psychological History: No Psychological Hx Reported Smoking Status: Never smoker Past Alcohol Use History: None Reported Past Drug Use History: None Reported - Past Family History Mother Family Medical History: No Reported History Father Family Medical History: Hypertension General Exam - General Exam Comments Initial Comments: GENERAL: Patient is well-developed and well-nourished. Patient is nontoxic and in no acute distress. HEAD: Atraumatic, normocephalic. EYES: Pupils equal round and reactive to light, extraocular movements intact, sclera anicteric, conjunctiva are normal. Eyelids were unremarkable. ENT: TMs normal, nares patent, oropharynx clear without exudates. Moist mucous membranes. NECK: Normal range of motion, supple without lymphadenopathy or JVD. LUNGS: Unlabored respirations. Breath sounds clear to auscultation bilaterally and equal. No wheezes rales or rhonchi. HEART: Regular rate and rhythm without murmurs, rubs or gallops. ABDOMEN: Soft, nontender, normoactive bowel sounds. No guarding, no rebound. No masses appreciated. MUSCULOSKELETAL: Normal extremities with adequate strength and normal range of motion, no pitting or edema. No clubbing or cyanosis. Tenderness with palpation of the left tricep area, no obvious bruising, or swelling. NEUROLOGICAL: Patient is alert and oriented x 3. Normal speech, normal gait. PSYCH: Normal mood, normal affect. SKIN: Warm, Dry, normal turgor, no rashes or lesions noted. Limitations: no limitations Course Vital Signs 04/06/21 04/06/21 04/06/21 20:17 21:15 21:18 Temperature 98.4 F Pulse Rate 94 82 Pulse Rate [ 81 Shoe Clerk ] Respiratory 18 18 Rate Blood Pressure 154/100 137/86 O2 Sat by Pulse 100 97 Oximetry EKG Findings - EKG Comments: EKG Findings:: Normal sinus rhythm, normal ECG, no signs of acute ST segment elevation. Ventricular rate 79, NC interval 176, QT 366. Medical Decision Making - Medical Decision Making Patient is a 45-year-old male with history of hypertension presenting with left arm pain that started today. No injuries or trauma that he is aware of. He does have some risk factors, did do a cardiac workup. His EKG is normal, labs are unremarkable including a normal troponin, chest x-ray is normal. The pain and patient's left arm is palpable, it sore around the triceps area. No indication of infection or signs of blood clot, he is neurovascularly intact. I discussed these findings with him. I feel like this could be some sort of a contusion to the area, muscle injury. I recommended heat or ice to the area, ibuprofen or Tylenol for any discomfort. Recommend following up with his primary care. He is agreeable to this plan of care and he is stable for discharge. Case discussed with Dr. Emerson. - Lab Data Result diagrams: 04/06/21 21:28 04/06/21 21:28 Lab Results 04/06/21 04/06/21 04/06/21 Range/Units 21:28 21:28 21:28 WBC 7.7 (3.8-10.6) k/uL RBC 4.93 (4.30-5.90) m/uL Hgb 13.8 (13.0-17.5) gm/dL Hct 40.1 (39.0-53.0) % MCV 81.4 (80.0-100.0) fL MCH 28.0 (25.0-35.0) pg MCHC 34.4 (31.0-37.0) g/dL RDW 13.4 (11.5-15.5) % Plt Count 237 (150-450) k/uL MPV 6.6 Neutrophils % 56 % Lymphocytes % 31 % Monocytes % 6 % Eosinophils % 4 % Basophils % 1 % Neutrophils # 4.4 (1.3-7.7) k/uL Lymphocytes # 2.4 (1.0-4.8) k/uL Monocytes # 0.4 (0-1.0) k/uL Eosinophils # 0.3 (0-0.7) k/uL Basophils # 0.1 (0-0.2) k/uL PT 9.7 (9.0-12.0) sec INR 0.9 (<1.2) APTT 23.1 (22.0-30.0) sec Sodium 137 (137-145) mmol/L Potassium 3.3 L (3.5-5.1) mmol/L Chloride 105 (98-107) mmol/L Carbon Dioxide 24 (22-30) mmol/L Anion Gap 8 mmol/L BUN 16 (9-20) mg/dL Creatinine 1.03 (0.66-1.25) mg/dL Est GFR (CKD-EPI)AfAm >90 (>60 ml/min/1.73 sqM) Est GFR (CKD-EPI)NonAf 87 (>60 ml/min/1.73 sqM) Glucose 119 H (74-99) mg/dL Calcium 9.3 (8.4-10.2) mg/dL Magnesium 2.2 (1.6-2.3) mg/dL Total Bilirubin 0.5 (0.2-1.3) mg/dL AST 31 (17-59) U/L ALT 19 (4-49) U/L Alkaline Phosphatase 62 (38-126) U/L Troponin I (0.000-0.034) ng/mL Total Protein 6.7 (6.3-8.2) g/dL Albumin 4.0 (3.5-5.0) g/dL 04/06/21 Range/Units 21:28 WBC (3.8-10.6) k/uL RBC (4.30-5.90) m/uL Hgb (13.0-17.5) gm/dL Hct (39.0-53.0) % MCV (80.0-100.0) fL MCH (25.0-35.0) pg MCHC (31.0-37.0) g/dL RDW (11.5-15.5) % Plt Count (150-450) k/uL MPV Neutrophils % % Lymphocytes % % Monocytes % % Eosinophils % % Basophils % % Neutrophils # (1.3-7.7) k/uL Lymphocytes # (1.0-4.8) k/uL Monocytes # (0-1.0) k/uL Eosinophils # (0-0.7) k/uL Basophils # (0-0.2) k/uL PT (9.0-12.0) sec INR (<1.2) APTT (22.0-30.0) sec Sodium (137-145) mmol/L Potassium (3.5-5.1) mmol/L Chloride (98-107) mmol/L Carbon Dioxide (22-30) mmol/L Anion Gap mmol/L BUN (9-20) mg/dL Creatinine (0.66-1.25) mg/dL Est GFR (CKD-EPI)AfAm (>60 ml/min/1.73 sqM) Est GFR (CKD-EPI)NonAf (>60 ml/min/1.73 sqM) Glucose (74-99) mg/dL Calcium (8.4-10.2) mg/dL Magnesium (1.6-2.3) mg/dL Total Bilirubin (0.2-1.3) mg/dL AST (17-59) U/L ALT (4-49) U/L Alkaline Phosphatase (38-126) U/L Troponin I <0.012 (0.000-0.034) ng/mL Total Protein (6.3-8.2) g/dL Albumin (3.5-5.0) g/dL Disposition Clinical Impression: Left upper arm pain Disposition: HOME SELF-CARE Condition: Stable Instructions (If sedation given, give patient instructions): Arm Pain (ED) Additional Instructions: Please return to the Emergency Department if symptoms worsen or any other concerns. Recommend heat and/or ice to the area, Tylenol provided for discomfort. Follow-up with your primary care. Is patient prescribed a controlled substance at d/c from ED?: No Referrals: Roger Alcaraz MD [Primary Care Provider] - 1-2 days Time of Disposition: 22:32
[2021-04-06 21:38] VITALS: PULSE 81
[2021-04-06 21:45] LABS: Basophils # (A) 0.1 k/uL (0-0.2); Basophils % (A) 1 %; Eosinophils # (A) 0.3 k/uL (0-0.7); Eosinophils % (A) 4 %; HCT 40.1 % (39.0-53.0); HGB 13.8 gm/dL (13.0-17.5); Lymphocytes # (A) 2.4 k/uL (1.0-4.8); Lymphocytes % (A) 31 %; MCHC 34.4 g/dL (31.0-37.0); MCV 81.4 fL (80.0-100.0); Mean Platelet Volume 6.6; Monocytes # (A) 0.4 k/uL (0-1.0); Monocytes % (A) 6 %; Neutrophils # (A) 4.4 k/uL (1.3-7.7); Neutrophils % (A) 56 %; Platelet Count 237 k/uL (150-450); RBC 4.93 m/uL (4.30-5.90); RDW 13.4 % (11.5-15.5); WBC 7.7 k/uL (3.8-10.6)
--- NOTE | 2021-04-06 21:50 | XR ---
EXAMINATION TYPE: XR chest 2V DATE OF EXAM: 04/06/2021 COMPARISON: 08/05/2017 HISTORY: Chest pain TECHNIQUE: FINDINGS: Heart and mediastinum are normal. Lungs are clear. Diaphragm is normal. Bony thorax is inta ct IMPRESSION: Normal chest. No change.
[2021-04-06 21:54] LABS: INR 0.9 (<1.2); Partial Thromboplastin Time 23.1 sec (22.0-30.0); Prothrombin Time 9.7 sec (9.0-12.0)
[2021-04-06 21:59] LABS: ALT 19 U/L (4-49); AST 31 U/L (17-59); African American GFR (CKD) >90 (>60 ml/min/1.73 sqM); Alkaline Phosphatase 62 U/L (38-126); Anion Gap 8 mmol/L; Blood Urea Nitrogen 16 mg/dL (9-20); Calcium 9.3 mg/dL (8.4-10.2); Carbon Dioxide 24 mmol/L (22-30); Chloride 105 mmol/L (98-107); Glucose 119 mg/dL (74-99); Magnesium 2.2 mg/dL (1.6-2.3); Non-African American GFR(CKD) 87 (>60 ml/min/1.73 sqM); Sodium 137 mmol/L (137-145); Total Bilirubin 0.5 mg/dL (0.2-1.3); Total Protein 6.7 g/dL (6.3-8.2)
[2021-04-06 22:06] LABS: Potassium 3.3 mmol/L (3.5-5.1)
[2021-04-06 22:49] VITALS: BP 132/87; TEMP 98.3
== END 2021-04-06 22:48 | disposition home or self-care (01) ==
LOC: EC 20:15
DX: M79.622 Pain in left upper arm (principal); I10 Essential (primary) hypertension; J45.909 Unspecified asthma, uncomplicated; Z88.5 Allergy status to narcotic agent; Z90.49 Acquired absence of other specified parts of digestive tract
CPT/HCPCS: 36415; 71046; 80053; 83735; 84484; 85025; 85610; 85730; 93005; 99284

== ENCOUNTER → 2021-11-15 | Outpatient (CLI) | payer OTHER ==
--- NOTE | 2021-11-15 09:09 | XR ---
EXAMINATION TYPE: XR lumbar spine 2 or 3V DATE OF EXAM: 11/15/2021 CLINICAL HISTORY: pain TECHNIQUE: Three views of the lumbar spine are submitted. COMPARISON: None. FINDINGS: There are 5 lumbar type vertebral bodies identified. The lumbar spine shows satisfactory alignment w ithout evidence of acute fracture or dislocation. Vertebral body heights are within normal limits. Disc spaces are within normal limits. The overlying soft tissue appears unremarkable. IMPRESSION: No acute fracture or dislocation is seen in the lumbar spine. ICD 10 NO FRACTURE, INITIAL EVALUATION
== END | disposition home or self-care (01) ==
LOC: RADXRMAIN 08:42
PROVIDERS: ATTEND Internal Medicine
DX: M54.50 Low back pain, unspecified (principal)
CPT/HCPCS: 72100

== ENCOUNTER → 2022-03-03 | Outpatient (CLI) | payer OTHER ==
[2022-03-03 09:03] VITALS: BP 120/80; PULSE 59; RESP 18
--- NOTE | 2022-03-03 14:45 | P.PAINPG ---
PQRS Measure Charge Sheet Comment: HISTORY OF PRESENT ILLNESS: 46 yr old male as a referral from [facility], operated by [facility] presents today w severe and chronic LBP secondary to DDD, spondylosis and facet arthropathy without myelopathy for evaluation. Pt states his pain level is currently at 6/10 in intensity, constant, escalates as high as 9/10, achy in character w shooting numbness towards RLE. Pain is provoked w chiropractic treatments weekly in August 2021, walking. Palliated w daily stretches, meds ([place] from Dr Alcaraz), laying supine and rest. PMH: Asthma, Hypertension PSH: Appendectomy, BL Elbow Tendon injections, RLE Achilles Tendon Repair, L Tibia Repair s/p Fx SH: Never smoker, No ETOH abuse, No illicit drug use. FH: Mo- No Reported History. Fa- HTN. All: See list Meds: See list REVIEW OF ORGAN SYSTEMS: CONSTITUTIONAL: No fevers or chills. No recent weight loss. NEUROLOGICAL: + numbness and tingling along the distal extremities. No seizure disorders or headaches. MUSCULOSKELETAL: + pain PSYCHIATRIC: Denies current depression or suicidal tho ughts. Physical Examinations : Constitutional : Cooperative , not in acute distress . Neurologic : Cranial nerve II to XII intact. No focal neurological deficits. Psychiatric : alert & oriented x 3. Matching mood & appropriate affect. Judgment & insight intact. Musculoskeletal : Cervical Spine Motor strength in the deltoid and biceps: Normal right side. Normal Left side Motor strength biceps and the wrist extensors: Normal right side . Normal left side Motor strength in the triceps muscle: Normal right side. Normal left side Deep tendon reflexes: Normal at the biceps. Normal at Brachioradialis. Normal at triceps Vertebral body tenderness to deep palpation over Cervical facet loading test: positive bilaterally Spurling test: positive bilaterally Neck distraction test: positive bilaterally Scott sign: positive bilaterally Lumbar spine Motor strength lower extremities ,thigh and legs 5/5 Right side , 5/5 Left side Deep tendon reflexes : Normal Knee Jerk. Normal Ankle Jerk Vertebral body tenderness over L5 Lumbar facet Loading Test: positive Right / positive Left Range of motion of the lumbar spine Flexion 30 degrees, extension 10 degrees Straight Leg Raise test: Left/ Right positive at degree Sumeet test: positive right / positive left. Severe tenderness over the Sacroiliac joint on the Right / Left sides Gaenslen test: positive bilaterally Seated flexion test: positive bilaterally. Sacral spine : Severe tenderness over the Sacroiliac joint: right side / left side Range of motion: Flexion of the lumbar spine <60 degrees Range of motion: Extension of the lumbar spine <20 degrees Gaenslen's Test positive Ananda's Test positive Sumeet test: positive right side / left side Thigh Thrust Test Sacral Thrust Test Imaging: MRI without contrast of the lumbar spine from 01/18/22 reviewed Assessment/ Plan : Lumbar DDD, Lumbar spondylosis Recommendation of R TFESI L5-S1. May need a series of injections, up to 3 within a six-month timeframe, for optimal pain relief. Risks, benefits of procedure discussed and patient verbalized understanding. Denies aspirin or anti- coagulant use or medical history of diabetes. Protocol for discontinuation/ continuation of medications marcial procedure discussed. All questions answered. I have spent greater than 30 minutes on patient care today. Dr Hedrick was available by phone for the evaluation of this patient. The time was used to review the medical records including relevant urine studies and Prescription history (MAPs), review of the available imaging, evaluation and examination of the patient, coordination of care with the medical staff and if applicable referring physicians, as well as creation of the medical record PQRS Narrative: Smoking Status Former smoker Home Medications: Ambulatory Orders Metoprolol Tartrate [Lopressor] 25 mg PO DAILY 08/05/17 amLODIPine [Norvasc] 10 mg PO DAILY 02/02/19 cloNIDine HCL [Catapres] 0.1 mg PO DAILY 02/02/19 Albuterol Sulfate [Proair Hfa] 2 puff INHALATION RT-QID PRN 04/06/21 Furosemide [Lasix] 20 mg PO DAILY 04/06/21 Losartan Potassium 100 mg PO DAILY 04/06/21 Potassium Chloride ER [K-Dur 10] 10 meq PO DAILY 04/06/21 Tamsulosin HCl [Flomax] 0.4 mg PO DAILY 04/06/21 hydroCHLOROthiazide 12.5 mg PO DAILY 04/06/21 Hydrocodone/Acetaminophen [Hydrocodon-Acetaminophn 10-325] 1 each PO Q12HR PRN 03/03/22 Controlled Substance Measures - Controlled Substance Measures Is patient prescribed a controlled substance at discharge?: No
== END ==
LOC: PNWHC3 08:27
PROVIDERS: ATTEND Specialist
DX: M54.16 Radiculopathy, lumbar region (principal); M51.26 Other intervertebral disc displacement, lumbar region; M48.061 Spinal stenosis, lumbar region without neurogenic claudication
CPT/HCPCS: 99211

== ENCOUNTER 2022-03-18 06:12 | Day surgery (SDC) | payer OTHER ==
[2022-03-18 06:26] VITALS: RESP 18; TEMP 97.2
[2022-03-18] MEDS ORDERED: DEXAMETHASONE SOD PHOSPHATE 10 MG/ML 1 ML VIAL ONE (07:00)
[2022-03-18] MEDS ORDERED: IOPAMIDOL M200 10 ML VIAL ONE (07:00)
[2022-03-18] MEDS ORDERED: LACTATED RINGERS 1,000 ML IV SCH (07:15)
--- NOTE | 2022-03-18 07:18 | P.PCN ---
Date of Procedure: 03/18/22 Description of Procedure: PREOPERATIVE DIAGNOSIS: Lumbar radiculopathy, and lumbar degenerative disc d isease POSTOPERATIVE DIAGNOSIS: Lumbar radiculopathy and lumbar degenerative disc disease PROCEDURE: 1) right sided L5-S1 Transforaminal epidural steroid injection under fluoroscopic guidance , 2) Epidurogram SURGEON: Celena Sherwood GIFTED TEACHER: None ANESTHESIA: Local , and IV sedationas: None EBL: None. Specimen removed: None Fluoroscopic image: Saved to electronic medical records PROCEDURE INDICATION: The patient with continued lumbar pain with radiculopathy, and intervertebral disc disease without myelopathy that has failed to respond to adequate conservative management. Came here for repeat procedure. PROCEDURE DESCRIPTION: The patient was seen and identified in the preoperative area. Risks, benefits, complications, and alternatives were discussed with the patient. The patient agreed to proceed with the procedure and signed the consent. IV was started, and vital signs were stable. Patient was taken to the OR and time out was completed. The patient was placed in the prone position on procedure table and a pillow was placed under the abdomen to reduce lumbar lordosis. The lumbosacral area was prepped with ChloraPrep 1 and draped in the usual sterile fashion. Critical pause was taken. Vital signs were closely monitored during the procedure. Using 20 degree ipsilateral oblique fluoroscopy, the chin of the Jayson dog of L5 was identified, and the skin and deeper tissues just below was localized with 1% lidocaine. 22-guage 3.5-inch spinal needle was used for the procedure. The needle was guided by fluoroscopy just underneath the chin of the Jayson dog of L5. Under AP fluoroscopy, the needle was advanced to the 6 o'clock position of the L5 pedicle , in lateral view the tip of the needle position conformed. After negative aspiration of CSF and blood and with no paresthesias, 1 mL of Isovue-200 contrast dye was injected at each level with excellent anterior epidural spread and outlining of the L5 nerve root, 3 mL of block solution was injected. Block solution contained 10 mg of dexamethasone with 2 mL of normal saline preservative-free. Needle was removed intact, skin was cleansed, and bandages were applied. COMPLICATIONS: None. DISPOSITION : The patient was placed in a supine position and transferred to the recovery area in a stable condition for observation and was discharged from the recovery room after meeting discharge criteria. Home discharge instructions given to the patient by the staff. The patient was reexamined prior to discharge. The patient will schedule follow-up in the clinic in 4 weeks' duration
[2022-03-18 07:29] VITALS: BP 121/84; PULSE 62
--- NOTE | 2022-03-18 07:30 | FL ---
Intraoperative/procedural fluoroscopic services were provided for transforaminal injection. Total flu oroscopy time is 6 seconds with a total of 2 submitted images to PACS. Please see the operative note for further details.
== END 2022-03-18 07:35 | disposition home or self-care (01) ==
LOC: ORPAIN 06:12
DX: M51.16 Intervertebral disc disorders with radiculopathy, lumbar region (principal)
CPT/HCPCS: 64483; J1100; Q9966

== ENCOUNTER → 2022-04-10 | Outpatient (CLI) | payer OTHER ==
[2022-04-10 09:09] VITALS: BP 115/78; PULSE 57; RESP 18; TEMP 98.1
--- NOTE | 2022-04-10 14:22 | P.PAINPG ---
PQRS Measure Charge Sheet Comment: A 46 yr old male with a history of severe and chronic low back pain secondary to lumbar DDD and spondylosis with facet arthropathy without myelopathy presents today for evaluation s/p R TFESI L5-S1. Pt states he experienced 80% pain relief x 3 wks s/p procedure. Pain level is currently at 0 /10 in intensity, constant, localized in R lower lumbar spine, tingling in R lumbar spine towards RLE. Pain is provoked by certain positions when laying supine at bedtime. Pain is alleviated with heat, meds ([place]), home exercise regimen, repositioning and rest. Interventional pain procedures completed include R TFESI L5-S1 Patient is currently on [place] Patient denies any side effects of the medication(s), denies excessive drowsiness or sleepiness, denies suicidal ideation and reports that the current pain medication is helping to control the pain and improve activities of daily living. Patient denies any motor or sensory deficits. Patient denies any fever or night sweats, denies any change in the bowel movements or urination. Physical Examination: -Constitutional: Cooperative. Not in acute distress . - Neurologic: Cranial nerve II to XII intact. No focal neurological deficits. - Psychatric: Alert & oriented x 3. Matching mood & appropriate affect. Judgment and insight intact. - Musculoskeletal: Cervical spine: Muscle bulk/ tone/ strength in the bilateral upper extremities normal Vertebral body tenderness to palpation over Spurling test positive Distraction test positive Facet loading test positive Thoracic spine Muscle bulk / tone/ strength in the bilateral paraspinal muscles normal Vertebral body tender to palpation over Facet loading test positive Lumbar spine: Motor bulk/ tone/ strength lower extremities , thigh and legs : 5/5 Deep tendon reflexes : Normal Knee Jerk. Normal Ankle Jerk . Vertebral body tenderness to palpation over Lumbar Facet Loading Test positive Straight Leg Raise: positive at 30 degrees right side/ left side Gaenslen's Test positive Sacral spine : Severe tenderness over the Sacroiliac joint: right side / left side Range of motion: Flexion of the lumbar spine <60 degrees Range of motion: Extension of the lumbar spine <20 degrees Gaenslen's Test positive Sumeet test: positive right side / left side Thigh Thrust Test Sacral Thrust Test Assessment and plan: Chronic low back pain secondary to lumbar degenerative disc disease, spondylosis with facet arthropathy without myelopathy Pt exhibited sufficient and optimal pain relief s/p procedure. He will continue home pain modifying remedies and may return to this clinic on an as needed basis. Risks, benefits of procedure discussed and pt verbalized understanding. Denies anticoagulant use or medical history of diabetes. All patient questions answered I have spent less than 30 minutes on patient care today. Dr Hedrick was available by phone for the evaluation of this patient. The time was used to review the medical records including relevant urine studies and Prescription history (MAPs), review of the available imaging, evaluation and examination of the patient, coordination of care with the medical staff and if applicable referring physicians, as well as creation of the medical record PQRS Narrative: Smoking Status Former smoker Hx Alcohol Use (MH) No Home Medications: Ambulatory Orders Metoprolol Tartrate [Lopressor] 25 mg PO DAILY 08/05/17 amLODIPine [Norvasc] 10 mg PO DAILY 02/02/19 cloNIDine HCL [Catapres] 0.1 mg PO DAILY 02/02/19 Albuterol Sulfate [Proair Hfa] 2 puff INHALATION RT-QID PRN 04/06/21 Furosemide [Lasix] 20 mg PO DAILY 04/06/21 Losartan Potassium 100 mg PO DAILY 04/06/21 Potassium Chloride ER [K-Dur 10] 10 meq PO DAILY 04/06/21 Tamsulosin HCl [Flomax] 0.4 mg PO DAILY 04/06/21 hydroCHLOROthiazide 12.5 mg PO DAILY 04/06/21 Hydrocodone/Acetaminophen [Hydrocodon-Acetaminophn 10-325] 1 each PO Q12HR PRN 03/03/22 Controlled Substance Measures - Controlled Substance Measures Is patient prescribed a controlled substance at discharge?: No
== END ==
LOC: PNWHC3 07:51
PROVIDERS: ATTEND Specialist
DX: M47.816 Spondylosis without myelopathy or radiculopathy, lumbar region (principal); M51.36 Other intervertebral disc degeneration, lumbar region; G89.29 Other chronic pain; Z88.5 Allergy status to narcotic agent; Z87.891 Personal history of nicotine dependence
CPT/HCPCS: 99211

== ENCOUNTER 2023-06-05 09:29 | Emergency (ER) | payer OTHER ==
[2023-06-05 09:51] VITALS: RESP 18
[2023-06-05] MEDS ORDERED: valACYclovir HCL 1,000 MG TABLET PO STA (10:05)
[2023-06-05] MEDS ORDERED: predniSONE 20 MG TAB PO STA (10:05)
[2023-06-05 10:21] LABS: Basophils # (A) 0.1 k/uL (0-0.2); Basophils % (A) 1 %; Eosinophils # (A) 0.2 k/uL (0-0.7); Eosinophils % (A) 2 %; HCT 48.8 % (39.0-53.0); HGB 16.7 gm/dL (13.0-17.5); Lymphocytes # (A) 1.3 k/uL (1.0-4.8); Lymphocytes % (A) 21 %; MCHC 34.3 g/dL (31.0-37.0); MCV 81.4 fL (80.0-100.0); Mean Platelet Volume 7.1; Monocytes # (A) 0.4 k/uL (0-1.0); Monocytes % (A) 6 %; Neutrophils # (A) 4.1 k/uL (1.3-7.7); Neutrophils % (A) 67 %; Platelet Count 280 k/uL (150-450); RBC 5.99 m/uL (4.30-5.90); RDW 12.7 % (11.5-15.5); WBC 6.2 k/uL (3.8-10.6)
[2023-06-05 10:35] LABS: INR 0.9 (<1.2); Prothrombin Time 10.5 sec (10.0-12.5)
[2023-06-05 10:39] LABS: ALT 21 U/L (4-49); AST 28 U/L (17-59); African American GFR (CKD) >90 (>60 ml/min/1.73 sqM); Albumin 5.1 g/dL (3.5-5.0); Alkaline Phosphatase 71 U/L (38-126); Anion Gap 17 mmol/L; Blood Urea Nitrogen 12 mg/dL (9-20); Calcium 10.2 mg/dL (8.4-10.2); Carbon Dioxide 26 mmol/L (22-30); Chloride 98 mmol/L (98-107); Creatine Kinase 117 U/L (55-170); Glucose 100 mg/dL (74-99); Non-African American GFR(CKD) 86 (>60 ml/min/1.73 sqM); Potassium 3.3 mmol/L (3.5-5.1); Sodium 141 mmol/L (137-145); Total Protein 8.6 g/dL (6.3-8.2)
--- NOTE | 2023-06-05 11:15 | CT ---
EXAMINATION TYPE: CT brain wo con DATE OF EXAM: 06/05/2023 COMPARISON: INDICATION: facial numbness DLP: 1129 mGycm, Automated exposure control for dose reduction was used. CONTRAST: None CT of the brain is performed utilizing 3 mm thick sections through the posterior fossa and 3 mm thick sections through the remaining calvarium. Study is performed within 24 hours of arrival to the hosp [facility]. No abnormal hyperdensity is present to suggest an acute intracranial hemorrhage. No mass lesion is evident. No acute infarcts are evident. Ventricles and sulci are appropriate for the patient age. Paranasal sinuses and mastoid air cells within the [id number] are clear. Left septal deviation is noted. IMPRESSION: 1. No acute intracranial process. Follow-up MRI can be performed as clinically indicated.
--- NOTE | 2023-06-05 12:03 | CT ---
EXAMINATION TYPE: CT angio head neck DATE OF EXAM: 06/05/2023 COMPARISON: CT brain earlier today HISTORY: 47-year-old male facial numbness TECHNIQUE: Contiguous axial scanning of the head and neck performed with IV Contrast, patient injecte d with 65cc mL of Isovue 370. Coronal and sagittal reconstructions performed. 3-D reconstructions gen erated on a dedicated independent workstation. CT DLP: 526.3 mGycm Automated exposure control for dose reduction was used. FINDINGS: Neck: There is conventional arch vessel branching anatomy. The vertebral arteries are codominant and patent throughout their course. Very tortuous bilateral upper cervical internal carotid arteries. Otherwise, the bilateral common and internal carotid arteries are widely patent. NASCET criteria is utilized. Mild to moderate bilateral palatine tonsillar hypertrophy. There is a small 3 mm tonsillar/calcificat ion left palatine tonsils. Brain: The vertebral and basilar artery as well as the remainder of the posterior circulation is patent. The bilateral internal carotid arteries are patent. Hypoplastic A1 segment right anterior cerebral ar carla. Anatomic variation with early bifurcation left MCA. Otherwise, the anterior circulation is patent. No aneurysmal change is seen. Dural venous sinuses are patent. IMPRESSION: 1. NECK: WIDELY PATENT VERTEBRAL AND CAROTID ARTERIES OF THE NECK. 2. HEAD: NO LARGE VESSEL INTRACRANIAL ARTERIAL OCCLUSION, SIGNIFICANT STENOSIS, OR ANEURYSMAL CHANGE IS SEEN.
--- NOTE | 2023-06-05 13:27 | ED ---
Neuro HPI - General Chief Complaint: Neuro Symptoms/Deficit Stated Complaint: Neuro Symptoms Source: patient Mode of arrival: ambulatory Limitations: no limitations - History of Present Illness Is the patient presenting with stroke symptoms?: No Initial Comments: 47-year-old male with past medical history of hypertension presents to the emergency department for right-sided facial droop. States he went to bed normal last night at 11 PM. When he awoke this morning he noted that he had complete facial droop on the right side including his eye. Patient unable to close his eye. He does admit that over the past couple of days he has had some posterior right head pain. No recent upper respiratory infections. Denies hearing changes. He denies any numbness, tingling or weakness in his upper or lower extremity. No history of stroke. No speech deficits. No visual changes. Denies issues with balance. No other alleviating, flight instructor modifying factors - Related Data Home Medications: Home Medications Medication Instructions Recorded Confirmed amLODIPine [Norvasc] 10 mg PO DAILY 02/02/19 06/05/23 Tamsulosin HCl [Flomax] 0.4 mg PO DAILY 04/06/21 06/05/23 Losartan/Hydrochlorothiazide 1 tab PO DAILY 06/05/23 06/05/23 [Hyzaar 100-12.5 Tablet] traMADol HCl [Ultram] 50 mg PO Q8H 06/05/23 06/05/23 Previous Rx's Medication Instructions Recorded Carboxymethylcellulose Sodium 1 drop RIGHT EYE Q1HR #15 ml 06/05/23 [Refresh Tears] predniSONE [Deltasone] 20 mg PO BID #10 tab 06/05/23 valACYclovir HCL [Valacyclovir] 1,000 mg PO TID #21 tab 06/05/23 Allergies/Adverse Reactions: Allergies Allergy/AdvReac Type Severity Reaction Status Date / Time morphine AdvReac Heart Rate Verified 06/05/23 09:55 Drops Review of Systems ROS Statement: Those systems with pertinent positive or pertinent negative responses have been documented in the HPI. ROS Other: All systems not noted in ROS Statement are negative. General Exam Limitations: no limitations General appearance: alert, in no apparent distress Head exam: Present: atraumatic, normocephalic, normal inspection Eye exam: Present: PERRL, EOMI, other (facial droop include upper and lower right face. unable to close right eye). Absent: scleral icterus, conjunctival injection, periorbital swelling ENT exam: Present: normal exam, mucous membranes moist Neck exam: Present: normal inspection. Absent: tenderness, meningismus, lymphadenopathy Respiratory exam: Present: normal lung sounds bilaterally. Absent: respiratory distress, wheezes, rales, rhonchi, stridor Cardiovascular Exam: Present: regular rate, normal rhythm, normal heart sounds. Absent: systolic murmur, diastolic murmur, rubs, gallop, clicks GI/Abdominal exam: Present: soft, normal bowel sounds. Absent: distended, tenderness, guarding, rebound, rigid Extremities exam: Present: normal inspection, full ROM, normal capillary refill. Absent: tenderness, pedal edema, joint swelling, calf tenderness Back exam: Present: normal inspection Neurological exam: Present: alert, oriented X3, CN II-XII intact Psychiatric exam: Present: normal affect, normal mood Skin exam: Present: warm, dry, intact, normal color. Absent: rash Stroke MDM - Lab Data Result diagrams: 06/05/23 10:06 06/05/23 10:06 Lab Results 06/05/23 06/05/23 06/05/23 Range/Units 10:06 10:06 10:06 WBC 6.2 (3.8-10.6) k/uL RBC 5.99 H (4.30-5.90) m/uL Hgb 16.7 (13.0-17.5) gm/dL Hct 48.8 (39.0-53.0) % MCV 81.4 (80.0-100.0) fL MCH 28.0 (25.0-35.0) pg MCHC 34.3 (31.0-37.0) g/dL RDW 12.7 (11.5-15.5) % Plt Count 280 (150-450) k/uL MPV 7.1 Neutrophils % 67 % Lymphocytes % 21 % Monocytes % 6 % Eosinophils % 2 % Basophils % 1 % Neutrophils # 4.1 (1.3-7.7) k/uL Lymphocytes # 1.3 (1.0-4.8) k/uL Monocytes # 0.4 (0-1.0) k/uL Eosinophils # 0.2 (0-0.7) k/uL Basophils # 0.1 (0-0.2) k/uL PT 10.5 (10.0-12.5) sec INR 0.9 (<1.2) APTT 25.0 (22.0-30.0) sec Sodium 141 (137-145) mmol/L Potassium 3.3 L (3.5-5.1) mmol/L Chloride 98 (98-107) mmol/L Carbon Dioxide 26 (22-30) mmol/L Anion Gap 17 mmol/L BUN 12 (9-20) mg/dL Creatinine 1.02 (0.66-1.25) mg/dL Est GFR (CKD-EPI)AfAm >90 (>60 ml/min/1.73 sqM) Est GFR (CKD-EPI)NonAf 86 (>60 ml/min/1.73 sqM) Glucose 100 H (74-99) mg/dL Calcium 10.2 (8.4-10.2) mg/dL Total Bilirubin 1.0 (0.2-1.3) mg/dL AST 28 (17-59) U/L ALT 21 (4-49) U/L Alkaline Phosphatase 71 (38-126) U/L Creatine Kinase 117 (55-170) U/L Troponin I (0.000-0.034) ng/mL Total Protein 8.6 H (6.3-8.2) g/dL Albumin 5.1 H (3.5-5.0) g/dL 06/05/23 Range/Units 10:06 WBC (3.8-10.6) k/uL RBC (4.30-5.90) m/uL Hgb (13.0-17.5) gm/dL Hct (39.0-53.0) % MCV (80.0-100.0) fL MCH (25.0-35.0) pg MCHC (31.0-37.0) g/dL RDW (11.5-15.5) % Plt Count (150-450) k/uL MPV Neutrophils % % Lymphocytes % % Monocytes % % Eosinophils % % Basophils % % Neutrophils # (1.3-7.7) k/uL Lymphocytes # (1.0-4.8) k/uL Monocytes # (0-1.0) k/uL Eosinophils # (0-0.7) k/uL Basophils # (0-0.2) k/uL PT (10.0-12.5) sec INR (<1.2) APTT (22.0-30.0) sec Sodium (137-145) mmol/L Potassium (3.5-5.1) mmol/L Chloride (98-107) mmol/L Carbon Dioxide (22-30) mmol/L Anion Gap mmol/L BUN (9-20) mg/dL Creatinine (0.66-1.25) mg/dL Est GFR (CKD-EPI)AfAm (>60 ml/min/1.73 sqM) Est GFR (CKD-EPI)NonAf (>60 ml/min/1.73 sqM) Glucose (74-99) mg/dL Calcium (8.4-10.2) mg/dL Total Bilirubin (0.2-1.3) mg/dL AST (17-59) U/L ALT (4-49) U/L Alkaline Phosphatase (38-126) U/L Creatine Kinase (55-170) U/L Troponin I <0.012 (0.000-0.034) ng/mL Total Protein (6.3-8.2) g/dL Albumin (3.5-5.0) g/dL - Medical Decision Making Was pt. sent in by a medical professional or institution (, PA, LUBE TECHNICIAN, urgent care, hospital, or jail...) When possible be specific @ -No Did you speak to anyone other than the patient for history (EMS, parent, family, police, friend...)? What history was obtained from this source @ -No Did you review nursing and triage notes (agree or disagree)? Why? @ -I reviewed and agree with nursing and triage notes Were old charts reviewed (outside hosp., previous admission, EMS record, old EKG, old radiological studies, urgent care reports/EKG's, jail records)? Report findings @ -No old charts were reviewed Differential Diagnosis (chest pain, altered mental status, abdominal pain women, abdominal pain men, vaginal bleeding, weakness, fever, dyspnea, syncope, headache, dizziness, GI bleed, back pain, seizure, CVA, palpatations, mental health, musculoskeletal)? @ -cva, tia, bells palsy EKG interpreted by me (3pts min.). @ -Yes and demonstrates sinus rhythm with rate of 69. AL interval 174. QRS 91. QTC of 395. No acute ST segment elevations or depressions X-rays interpreted by me (1pt min.). @ -None done CT interpreted by me (1pt min.). @ -yes, no occlusions U/S interpreted by me (1pt. min.). @ -None done What testing was considered but not performed or refused? (CT, X-rays, U/S, labs)? Why? @ -None What meds were considered but not given or refused? Why? @ -None Did you discuss the management of the patient with other professionals (professionals i.e. , PA, LUBE TECHNICIAN, lab, RT, psych nurse, sexual assault social worker, hearing aid consultant, teacher, facilities officer, case sealer)? Give summary @ -No Was smoking cessation discussed for >3mins.? @ -No Was critical care preformed (if so, how long)? @ -No Were there social determinants of health that impacted care today? How? (Homelessness, low income, unemployed, alcoholism, drug addiction, transportation, low edu. Level, literacy, decrease access to med. care, detention, rehab)? @ -No Was there de-escalation of care discussed even if they declined (Discuss DNR or withdrawal of care, Hospice)? DNR status @ -No What co-morbidities impacted this encounter? (DM, HTN, Smoking, COPD, CAD, Cancer, CVA, ARF, Chemo, Hep., AIDS, mental health diagnosis, sleep apnea, morbid obesity)? @ -None Was patient admitted / discharged? Hospital course, mention meds given and route, prescriptions, significant lab abnormalities, going to OR and other pertinent info. @ -Upon arrival patient was placed into room 6. History and physical exam was performed. NIH is assessed and is to however symptoms do appear consistent with Wood's palsy. Patient was given thousand milligrams of valacyclovir and 60 mg of prednisone. Laboratory studies are conducted. Results of the testing are discussed with the patient. 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 Did discuss the treatment plan and prognosis. Patient will be discharged home at this time with steroids and valacyclovir. Instructed to use refresh eyedrops. Follow up with his primary care doctor return for any new or worsening symptoms. Patient agreeable was discharged in stable condition Undiagnosed new problem with uncertain prognosis? @ -yes Drug Therapy requiring intensive monitoring for toxicity (Heparin, Nitro, Insulin, Cardizem)? @ -No Were any procedures done? @ -No Diagnosis/symptom? @ -acute right sided facial droop, acute bells palsy Acute, or Chronic, or Acute on Chronic? @ -acute Uncomplicated (without systemic symptoms) or Complicated (systemic symptoms)? @ -uncomplicated Side effects of treatment? @ -No Exacerbation, Progression, or Severe Exacerbation? @ -No Poses a threat to life or bodily function? How? (Chest pain, [place], [place], pneumonia, PE, COPD, DKA, ARF, appy, cholecystitis, CVA, Diverticulitis, Homicidal, Suicidal, threat to staff... and all critical care pts) @ -No Past Medical History Past Medical History: Asthma, Hypertension Additional Past Medical History / Comment(s): diverticulitis History of Any Multi-Drug Resistant Organisms: None Reported Past Surgical History: Appendectomy, Orthopedic Surgery Additional Past Surgical History / Comment(s): Tendons in B/L elbows, achillies tendon on the right leg, left leg broken tibia Past Anesthesia/Blood Transfusion Reactions: No Reported Reaction Past Psychological History: No Psychological Hx Reported Smoking Status: Never smoker Past Alcohol Use History: None Reported Past Drug Use History: None Reported - Past Family History Mother Family Medical History: No Reported History Father Family Medical History: Hypertension Course Vital Signs 06/05/23 06/05/23 09:31 14:05 Temperature 98.4 F 98.2 F Pulse Rate 74 70 Respiratory 18 18 Rate Blood Pressure 140/97 135/87 O2 Sat by Pulse 100 100 Oximetry Disposition Clinical Impression: Wood's palsy Disposition: HOME SELF-CARE Condition: Stable Instructions (If sedation given, give patient instructions): Wood Palsy (ED) Additional Instructions: Use the eye drops every hour while awake. Tape your eye closed at night. Take t he steroids starting tomorrow. Take 2 more doses of the valacyclovir today. Return for any new or worsening symptoms Prescriptions: predniSONE [Deltasone] 20 mg PO BID #10 tab Carboxymethylcellulose Sodium [Refresh Tears] 1 drop RIGHT EYE Q1HR #15 ml valACYclovir HCL [Valacyclovir] 1,000 mg PO TID #21 tab Is patient prescribed a controlled substance at d/c from ED?: No Referrals: Roger Alcaraz MD [Primary Care Provider] - 1-2 days Time of Disposition: 13:27
[2023-06-05 14:41] VITALS: BP 135/87; PULSE 70; TEMP 98.2
== END 2023-06-05 14:05 | disposition home or self-care (01) ==
LOC: EC 09:29
DX: G51.0 Bell's palsy (principal); J45.909 Unspecified asthma, uncomplicated; I10 Essential (primary) hypertension; Z79.899 Other long term (current) drug therapy; Z88.5 Allergy status to narcotic agent
CPT/HCPCS: 99284 ×2; 36415; 93005; 80053; 82550; 84484; 85025; 85610; 85730; 70496; 70450; 70498; J7512; Q9967

== ENCOUNTER 2023-12-11 11:32 | Day surgery (SDC) | payer OTHER ==
[2023-12-08 15:14] VITALS: BMI 25.8
[~2023-12-11 11:32] MED LIST: LIDOCAINE 1% (10MG/ML) FOR IV START INTRADERMA PRN
[2023-12-11 13:06] VITALS: TEMP 97.3
[2023-12-11] MEDS: IV FLUID CONTINUATION 1,000 ML IV ONE (13:54)
[2023-12-11] MEDS: LACTATED RINGERS 1,000 ML IV SCH (13:58)
[2023-12-11] MEDS ORDERED: PROPOFOL 10 MG/ML 20 ML VIAL IV ONE (13:59)
--- NOTE | 2023-12-11 14:22 | P.PCN ---
Date of Procedure: 12/11/23 Procedure(s) Performed: BRIEF HISTORY: Patient is a 47-year-old pleasant white male scheduled for an elective colonoscopy as a part of screening for colon cancer. PROCEDURE PERFORMED: Colonoscopy. PREOPERATIVE DIAGNOSIS: Screening for colon cancer IV sedation per Anesthesia. PROCEDURE: After informed consent was obtained, the patient, was brought into the endoscopy unit. IV sedation was administered by Anesthesia under continuous monitoring. Digital rectal examination was normal. Initially the Olympus CF-160 flexible video colonoscope was then inserted in the rectum, gradually advanced into the cecum without any difficulty. Careful examination was performed as the scope was gradually being withdrawn. Ileocecal valve and the appendiceal orifice were visualized and appeared normal. Prep was excellent. Mucosa of the cecum, ascending colon, transverse colon, descending colon, sigmoid colon, and rectum appeared normal. Retroflexion was performed in the rectum and no lesions were seen. The patient tolerated the procedure well. IMPRESSION: Normal-appearing colon from rectum to cecum with no evidence of colorectal neoplasia. RECOMMENDATIONS: Findings of this examination were discussed with the patient as well as his family. He was advised to have a repeat screening colonoscopy in 10 years.
[2023-12-11 14:34] VITALS: RESP 16
[2023-12-11 15:33] VITALS: BP 131/89; PULSE 72
[2023-12-11] MEDS: KETOROLAC 15 MG/ML 1 ML VIAL IVP STA (16:00)
== END 2023-12-11 16:30 | disposition home or self-care (01) ==
LOC: ORWHC2ENDO 11:32
PROVIDERS: ATTEND Internal Medicine Gastroenterology
DX: Z12.11 Encounter for screening for malignant neoplasm of colon (principal); I10 Essential (primary) hypertension; J45.909 Unspecified asthma, uncomplicated; G51.0 Bell's palsy; Z79.899 Other long term (current) drug therapy
CPT/HCPCS: 45378; J1885; J2704